=== PATIENT | female | born 2000 | race Asian ===

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

== ENCOUNTER 2020-10-09 15:31 | Outpatient (REF) | payer BC, SELFPAY | END 2020-10-09 15:32 | disposition home or self-care (01) | LOC: LBN 15:31 | PROVIDERS: PCP Nurse Practitioner Family; Visit Provider Nurse Practitioner Family | DX: J02.9 Acute pharyngitis, unspecified (principal) | CPT/HCPCS: 87077; 87070 ==

== ENCOUNTER 2021-07-24 07:13 | Emergency (ER) | payer MEDICAID, SELFPAY ==
[2021-07-24 07:19] VITALS: BP 125/92; PULSE 118; RESP 16; TEMP 36.8; O2SAT 98
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
--- NOTE | 2021-07-24 09:20 | NUR.NOTE ---
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 wants information. says she is on her way to umbrella.Nursing Note:
--- NOTE | 2021-07-24 10:01 | NUR.NOTE ---
spoke to Natasha- told her that pt has refused umbrella and that we are releasing pt as there is no reason to hold her. also spoke to Efrain relaying the same information.Nursing Note:
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
== END 2021-07-24 10:08 | disposition home or self-care (01) ==
PROVIDERS: Emergency Provider Emergency Medicine; PCP Nurse Practitioner Family
DX: T69.8XXA Other specified effects of reduced temperature, initial encounter (principal); S41.111A Laceration without foreign body of right upper arm, initial encounter; W26.0XXA Contact with knife, initial encounter
CPT/HCPCS: 99285; 99283

== ENCOUNTER → 2021-09-15 18:13 | Outpatient (CLI) | payer MEDICAID, SELFPAY ==
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
--- NOTE | 2021-09-15 16:53 | DI.RAD_ITS ---
Exam(s) XR TIB/FIB LT EXAM: XR TIB/FIB LT CLINICAL HISTORY: LEFT LEG PAIN - M79.605, ? BONY INJURY TECHNIQUE: COMPARISON: CR XR ANKLE LT COMPLETE from 09/15/2021 FINDINGS: Two views were obtained. There is no evidence of acute fracture or dislocation. IMPRESSION: RADIATION DOSE DELIVERED: Total DLP
== END ==
PROVIDERS: PCP Nurse Practitioner Family; Visit Provider Physician Assistant Medical
DX: M79.605 Pain in left leg (principal); M25.572 Pain in left ankle and joints of left foot; G89.11 Acute pain due to trauma; X50.1XXA Overexertion from prolonged static or awkward postures, initial encounter; W18.30XA Fall on same level, unspecified, initial encounter; Y99.8 Other external cause status
CPT/HCPCS: 73590; 73610; 73630

== ENCOUNTER 2021-10-21 13:40 | Emergency (ER) | payer MEDICAID, SELFPAY ==
--- NOTE | 2021-10-21 13:45 | RT.EKG_ITS ---
APPROVED REPORT Exam: Resting ECG Reason for Exam: dizzy/syncope Patient Location: E HR:77 bpm ECG Measurements Heart Rate 77 AXIS DE 156 P 37 QRSd 81 QRS 33 QT 366 T 30 QTc 413 Conclusion Sinus rhythm...normal P axis, V-rate 60- 99 sinus rhythm, normal axis, normal intervals, non ischemic, no evidence of WPW, HOCM, Brugada, prolong ed QT, or ARVD
[2021-10-21 13:54] VITALS: BP 109/69; PULSE 80; RESP 16; TEMP 36.7; O2SAT 100
[2021-10-21 14:17] VITALS: RESP 22
[2021-10-21] MEDS: Normal Saline 1,000 ML 1000 ML IV (14:31)
--- NOTE | 2021-10-21 14:36 | ED.GENADUL_ITS ---
Discharge Plan Disposition Patient Disposition: HOME Condition: Improving Discharge Details Chief Complaint: Dizzy/Sync Clinical Impression: Near syncope Primary Care Provider: Pily Bain ED Provider: Aramis Christina Home Meds and New Rx's Prescriptions: No Action polyethylene glycol 3350 [Miralax] 17 GM powder in packet 1 cap PO DAILY PRNQty: 1 albuterol 90 mcg/actuation Aerosol INHALATION PRN PRN sertraline 50 mg tablet 150 mg PO HS Label Comments: TAKE 1 TABLET BY MOUTH ONCE DAILY aripiprazole 10 mg tablet 10 mg PO HS Label Comments: TAKE 1 TABLET BY MOUTH AT BEDTIME Discharge Instructions Instructions: Near Syncope (ED) Medical Decision Making 21-year-old female history of schizophrenia recently started aripiprazole and sertraline, presents with sensation of presyncope, has had blackouts for several years unexplained not worked up by neurology or cardiology, says that she began to pass out today with standing at work and was very busy and stressed with work. No chest pain or shortness of breath no headache no nausea no vomiting no urinary or GI symptomatology. Last menstrual period was abnormal last month and endorses infrequent abnormal periods. Hemodynamically stable alert oriented moving all extremities full strength and sensation, cranial nerves intact, nontoxic. Consider orthostatic hypotension versus vasovagal vers us heat related reaction versus electrolyte abnormality versus unlikely ACS PE CVA or aortic pathology. Screening labs fluids rest. 17: 29 patient resting comfortably feeling much better after fluids and snack. Relative hypoglycemia. Patient endorses that she does not eat much at baseline has been stressed and has not been eating her normal amount. Instructed to carry a snack to work. Feeling comfortable and wishes to go home. Given home care instructions and return precautions. HPI General Date/Time Provider Initiated Documentation: 10/21/21 14:12 . HPI Narrative: 21-year-old female history of schizophrenia presents with lightheadedness presyncopal sensation and history of blacking out multiple times, this happened multiple years ago with self resolution, has never had a cardiac or neurologic work-up per patient. Recently started aripiprazole and sertraline for ps ychiatric conditions. Over the past week or so has felt increasingly lightheaded, not dizzy denies chest pain shortness of breath nausea vomiting urinary symptoms or abnormal bowel movements. Patient believes she may have had a short menstrual period last month otherwise has irregular menstrual periods. Feeling better now that she is resting. At work doing a lot of standing when the symptoms came on Related Data Home Medications Medication Instructions Recorded Confirmed polyethylene glycol 3350 17 gram 1 cap PO DAILY PRN ##1 09/06/16 10/21/21 oral powder packet (Miralax) albuterol 90 mcg/actuation aerosol inhalation PRN PRN 07/24/21 inhaler sertraline 50 mg tablet 150 mg PO HS 07/24/21 10/21/21 aripiprazole 10 mg tablet 10 mg PO HS 10/21/21 10/21/21 Allergies Allergy/AdvReac Type Severity Reaction Status Date / Time bacitracin AdvReac Intermediate Hives Unverified 10/21/21 14:12 pollen extracts AdvReac Mild regular Unverified 10/21/21 14:12 allergies peanut butter Allergy Uncoded 10/21/21 14:12 General Stated Complaint: Dizzy/Sync STEVE: 3 Review of Systems Narrative: Review of Systems Constitutional: Presyncope Eyes: negative ENT: negative Cardiovascular: negative Respiratory: negative Gastrointestinal: negative : negative Musculoskeletal: negative Skin: negative Neurologic: negative Psych: negative PFSH All Active Problems (Updated 10/21/21 @ 17:31 by Aramis Christina MD) Near syncope (Acute) Suicidal ideation (Acute) Sad mood (Acute) Depressed (Acute) Deliberate self-cutting (Acute) Hives (Acute) Medical History (Updated 10/21/21 @ 17:31 by Aramis Christina MD) ADOPTED Allergic rhinitis due to pollen Attention deficit hyperactivity disorder, predominantly inattentive type Constipation Depression with suicidal ideation & anxiety Dane 1 wk hospitalization - ended 05/06/15 Wears glasses Social History Smoking/Tobacco Use Status: Current every day Tobacco Type: e-cigarettes Smoking risk assessment performed?: Yes Alcohol Intake: never Drug use: Never Substance use type: does not use Do you feel safe at home: Yes Do you feel safe in your relationship?: Yes Exam Narrative Exam Narrative: Physical Examination General: alert, awake, cooperative, resting comfortably, no acute distress HEENT: normocephalic, atraumatic; PERRL, EOM intact, conjunctiva normal; no nasal discharge; moist mucous membranes, oral and pharyngeal mucosa normal, tolerating secretions Neck: supple, trachea midline; full ROM Chest: normal to inspection Respiratory: normal respiratory effort, speaking in full sentences, clear to auscultation, no wheezing, rales or rhonchi Cardiac: regular rate, regular rhythm, S1S2 intact, no murmurs rubs or gallops GI: abdomen soft, non-tender, non-distended; no palpable mass or hepatosplenomegaly Skin: no lesions, rashes or trauma appreciated Neuro: AAOx3, normal speech, moving all extremities; however 5 strength upper and lower extremities, cranial nerves II through XII intact Psych: Appropriate mood and affect Course Vital Signs Vital signs: Vital Signs Temperature 36.7 C 10/21/21 13:54 Pulse 80 10/21/21 13:54 Respiratory Rate 16 10/21/21 13:54 Blood Pressure 109/69 10/21/21 13:54 Pulse Oximetry 100 10/21/21 13:54 Temperature 36.7 C 10/21/21 13:54 Temperature Source Skin 10/21/21 13:54 Pulse 80 10/21/21 13:54 Respiratory Rate 22 10/21/21 14:17 Respiratory Effort 10/21/21 14:17 Respiratory Depth Normal 10/21/21 14:17 Respiratory Pattern Normal 10/21/21 14:17 Blood Pressure 109/69 10/21/21 13:54 Pulse Oximetry 100 10/21/21 13:54 Oxygen Delivery Method Room Air 10/21/21 13:54 Oxygen Flow Rate 0 10/21/21 13:54 Pain Level 0 10/21/21 13:54 PAWSS Have you Been Recently Intoxicated or Drunk Within the Last 30 days?: No Have you Ever Experienced Previous Episodes of Alcohol Withdrawal?: No Have you ever Experienced Withdrawal Seizures?: No Have you ever Experienced Delirium Tremens(DT)s?: No Have you ever undergone Alcohol Rehabilitation Treatment (i.e, inpt ot ou tpatient treatment programs)?: No Have you ever Experienced Blackouts?: No Have you ever Combined Alcohol with other Downers within the last 90 days?: No Have you ever Combined Alcohol with any other Substance of Abuse during the last 90 days?: No Positive Blood Alcohol level on Presentation? [PCS.BAL]: No Evidence of Increased Autonomic Activity (i.e. HR>120, tremor, sweating, agitation, nausea)?: No Result: 0
[2021-10-21 14:39] LABS: Abs Immature Grans 0.02 10^3/uL (0.0-0.06); Absolute Basophil Count 0.03 10^3/uL (0.0-0.2); Absolute Eosinophil Count 0.17 10^3/uL (0.0-0.7); Absolute Lymphocyte Count 2.64 10^3/uL (1.2-3.4); Absolute Monocyte Count 0.72 10^3/uL (0.1-0.8); Absolute Neutrophil Count 3.45 10^3/uL (1.2-6.7); Basophils % 0.4; Eosinophils % 2.4; HCT 38.8 % (36.0-46.0); HGB 12.8 g/dL (11.2-15.7); Immature Grans % 0.3; Lymphocytes % 37.6; MCH 31.2 pg (27.0-33.0); MCV 95 fL (80-95); MPV 10.4 fL (8.0-11.0); Monocytes % 10.2; Neutrophils % 49.1; Platelet Count 278 10^3/uL (130-400); RDW 12.2 % (11.7-14.6); WBC 7.03 10^3/uL (4.4-10.8)
[2021-10-21 15:45] LABS: ALT 22 U/L (14-59); Albumin 3.2 g/dL (3.4-5.0); Alkaline Phosphatase 65 U/L (46-116); Anion Gap 5.5 mmol/L (3-11); BUN 20 mg/dL (7-18); Bilirubin, Total 0.4 mg/dL (0.2-1.0); CO2 25.5 mmol/L (21.0-32.0); CREATININE 0.7 mg/dL (0.55-1.02); Calcium 8.5 mg/dL (8.5-10.1); Chloride 106 mmol/L (98-107); Glucose 72 mg/dL (74-106); Potassium 5.6 mmol/L (3.5-5.1); Sodium 137 mmol/L (136-145); Total Protein 7.5 g/dL (6.4-8.2)
[2021-10-21 16:08] LABS: AST 49 U/L (15-37)
[2021-10-21 17:47] VITALS: BP 113/70; PULSE 86; RESP 16; O2SAT 100
== END 2021-10-21 18:00 | disposition home or self-care (01) ==
PROVIDERS: Emergency Provider Emergency Medicine; PCP Nurse Practitioner Family
DX: R55 Syncope and collapse (principal); E16.2 Hypoglycemia, unspecified; F17.290 Nicotine dependence, other tobacco product, uncomplicated; Z32.02 Encounter for pregnancy test, result negative
CPT/HCPCS: 36415; 80053; 81025; 93005; 96360; 99284; 85025; 93010

== ENCOUNTER 2021-12-28 06:23 | Emergency (ER) | payer MEDICAID, SELFPAY ==
[2021-12-28 06:29] VITALS: BP 103/66; PULSE 73; RESP 18; TEMP 36.7; O2SAT 99
--- NOTE | 2021-12-28 06:43 | ED.GENADUL_ITS ---
Discharge Plan Disposition Patient Disposition: HOME Condition: Stable Discharge Details Clinical Impression: Abdominal pain, RLQ Primary Care Provider: Pily Bain ED Provider: Azam Palencia Home Meds and New Rx's Prescriptions: New naproxen [Naprosyn] 500 mg tablet 500 mg PO BID Qty: 20 0RF dicyclomine 20 mg tablet 20 mg PO QID Qty: 10 0RF Continued polyethylene glycol 3350 [Miralax] 17 GM powder in packet 1 cap PO DAILY PRNQty: 1 albuterol 90 mcg/actuation Aerosol INHALATION PRN PRN sertraline 50 mg tablet 150 mg PO HS Label Comments: TAKE 1 TABLET BY MOUTH ONCE DAILY aripiprazole 10 mg tablet 10 mg PO HS Label Comments: TAKE 1 TABLET BY MOUTH AT BEDTIME Discharge Instructions Instructions: Abdominal Pain (ED) Additional Instructions: CT imaging reveals some mesenteric enlarged lymph nodes as well as a calcification in the right pelvis, this is likely not a stone. It would appear as though you are feeling improved with your IV medications. I am providing a prescription for both Bentyl and Naprosyn, please take as directed. Clear liquid diet, advance as tolerated. Please watch for new or worsening symptoms and return to the ER for any concerns. I strongly recommend that you contact your primary care provider later today to discuss your ER visit and ongoing sy mptoms. If symptoms are to persist then referral to general surgery, urology, [employer], they indicated for further evaluation of your presentation. Medical Decision Making Patient presenting with right lower quadrant abdominal pain worsening over 2 days. No associated symptoms. She is quite tender in the right lower quadrant. Urine test is negative. IV established and laboratory studies obtained. Urinalysis sent for. CT scan of the abdomen pelvis ordered. Fluids and ketorolac given. Patient's urinalysis negative. CBC and CMP are normal. CT scan is pending Lab Data Lab results reviewed: Yes I reviewed the patient's lab results. HPI General Mode of arrival: ambulatory . Date/Time Provider Initiated Documentation: 12/28/21 06:41 . Limitations to Documentation: no limitations . Information obtained by: patient . HPI Narrative: Patient presents to ED with right lower quadrant abdominal pain. She has had some discomfort for a couple of days but this morning much worse and now sharp in nature at times. She has not had this previously. She denies any fever, nausea, vomiting, anorexia, diarrhea, pelvic pain, urinary symptoms. She has low back pain which is normal for her and unchanged. She has had no previous surgeries. Pain worse with movement as well as with driving over here when hitting bumps. Related Data Home Medications Medication Instructions Recorded Confirmed polyethylene glycol 3350 17 gram 1 cap PO DAILY PRN ##1 09/06/16 10/21/21 oral powder packet (Miralax) albuterol 90 mcg/actuation aerosol inhalation PRN PRN 07/24/21 inhaler sertraline 50 mg tablet 150 mg PO HS 07/24/21 10/21/21 aripiprazole 10 mg tablet 10 mg PO HS 10/21/21 10/21/21 dicyclomine 20 mg tablet 20 mg PO QID #10 tabs 12/28/21 naproxen 500 mg tablet (Naprosyn) 500 mg PO BID #20 tabs 12/28/21 Previous Rx's Medication Instructions Recorded dicyclomine 20 mg tablet 20 mg PO QID #10 tabs 12/28/21 naproxen 500 mg tablet (Naprosyn) 500 mg PO BID #20 tabs 12/28/21 Allergies Allergy/AdvReac Type Severity Reaction Status Date / Time bacitracin AdvReac Intermediate Hives Unverified 12/28/21 06:32 pollen extracts AdvReac Mild regular Unverified 12/28/21 06:32 allergies peanut butter Allergy Uncoded 12/28/21 06:32 General Stated Complaint: Abd Prob STEVE: 3 Review of Systems Narrative: 01/12 Review of Systems completed and is negative except as stated above in HPI (Systems reviewed: Const, Eyes, ENT, Resp, CV, GI, , MSK, Skin, Neuro) PFSH All Active Problems (Updated 12/28/21 @ 07:43 by Jourdan Lutz MD) Abdominal pain, RLQ (Acute) Allergic rhinitis due to pollen (Acute) Suicidal ideation (Acute) Sad mood (Acute) Depressed (Acute) Deliberate self-cutting (Acute) Hives (Acute) Medical History (Updated 12/28/21 @ 07:43 by Jourdan Lutz MD) ADOPTED Attention deficit hyperactivity disorder, predominantly inattentive type Constipation Depression with suicidal ideation & anxiety Anthonylenatalia 1 wk hospitalization - ended 05/06/15 Wears glasses Social History Smoking/Tobacco Use Status: Current every day Tobacco Type: e-cigarettes Smoking risk assessment performed?: Yes Alcohol Intake: never Drug use: Never Substance use type: does not use Do you feel safe at home: Yes Do you feel safe in your relationship?: Yes Exam Narrative Exam Narrative: Const: WDWN female in NAD. HEENT: NC/AT. Normal facial exam. Eyes: Normal conjunctiva and sclera. Neck: Supple. Trachea midline. Lungs: Normal respiratory effort. Lungs are clear. Cor: RRR without murmur/gallop. Good radial pulses. GI: Soft and ND. Tender in the right lower quadrant with guarding. No rebound. No Rovsing Back: No CVAT Neuro: A+O x 3. Normal speech, mentation, gait. Cranial nerves II - XII grossly intact. No gross motor or sensory deficit. Ext: No C/C/E. Skin: Warm and dry without rash. Course Vital Signs Vital signs: Vital Signs Temperature 98.1 F 12/28/21 06:29 Pulse 73 12/28/21 06:29 Respiratory Rate 18 12/28/21 06:29 Blood Pressure 103/66 12/28/21 06:29 Pulse Oximetry 99 12/28/21 06:29 Temperature 98.1 F 12/28/21 06:29 Temperature Source Oral 12/28/21 06:29 Pulse 73 12/28/21 06:29 Respiratory Rate 18 12/28/21 06:29 Respiratory Effort Non-Labored 12/28/21 06:33 Blood Pressure 103/66 12/28/21 06:29 Pulse Oximetry 99 12/28/21 06:29 Pain Level 8 12/28/21 06:29 Lab/Test Results Lab/Test Results: POC- Test(urine) Negative Sign Out Sign Out Data: Sign Out Comment: pending CT Last updated by Jourdan Lutz MD at 12/28/21 08:21
--- NOTE | 2021-12-28 06:45 | DI.CT_ITS ---
Exam(s) CT ABDOMEN PELVIS W EXAM: CT ABDOMEN PELVIS W CLINICAL HISTORY: RLQ pain TECHNIQUE: Imaging Protocol: Axial computed tomography images with coronal and sagittal reformatted images were created and reviewed CONTRAST MATERIAL: Intravenous: Omnipaque 350 Contrast volume:100 mL Oral: No COMPARISON: No exams were available for comparison FINDINGS: ABDOMEN: Lung Bases: Normal where visualized. Liver: Normal density. No measurable mass. Portal, Superior Mesenteric, and Splenic Veins: Unremarkable. Gallbladder and Biliary Tract: No radiodense calculus or dilation. Pancreas: Normal density, no abnormal calcifications or inflammatory process. Spleen: Normal. Adrenals: No masses seen. Kidneys: Normal size, contour and axis. No radiodense stones or obstructive uropathy. No masses seen. There is a 3 mm calcification in the right pelvis in the expected course of the distal ureter. No s ignificant dilatation or asymmetric dilatation of the collecting systems are is noted. The kidneys s how normal and symmetric enhancement. This may represent a phlebolith. A nonobstructing distal uret eral stone may also be considered. Abdominal Aorta: Abdominal portion non-dilated. Bowel: No obstruction or bowel wall thickening. Appendix is unremarkable. Peritoneal Cavity: No ascites, collection or mesenteric inflammatory response. No free air. Lymph Nodes: Mildly enlarged lymph nodes are seen in the mesentery and right lower quadrant. Bones: Within normal limits for the patient's age. Soft Tissues: Unremarkable. PELVIS: Bladder: Symmetric distention, no gross wall thickening. Reproductive Organs: Unremarkable as visualized. Lymph Nodes: Within normal limits. Bones: Within normal limits for the patient's age. IMPRESSION: 1. 3 mm calcification in the right pelvis. Phlebolith versus nonobstructing stone distal ureteral st one. Please see the above discussion for complete details. 2. Mildly enlarged mesenteric lymph nodes. This may represent mesenteric adenitis or a mild enteriti s. 3. Results of this exam have been verbally communicated with provider. RADIATION DOSE DELIVERED: 810.45mGy.cm Total DLP DATA REPOSITORY: All CT scans at this facility are submitted to the National Radiology Data Registry (NRDR) Dose Index Registry (DIR) with the [employer] (A[employer]). RADIATION OPTIMIZATION: All CT scans at this facility use at least one of these dose optimization te chniques: automated exposure control; mA and/or kV adjustment per patient size (includes targeted exa ms where dose is matched to clinical indication); or iterative reconstruction.
[2021-12-28 06:53] LABS: Bilirubin Negative (Negative); Blood Negative (Negative); Clarity Clear (Clear); Glucose Negative (Negative); Ketones Negative (Negative); Leukocyte Esterase Negative (Negative); Nitrite Negative (Negative); Specific Gravity >= 1.030 (1.005-1.025); Urobilinogen 0.2 EU/dL (Up TO 0.2); pH 6.5 (5-8)
[2021-12-28 07:22] LABS: Abs Immature Grans 0.01 10^3/uL (0.0-0.06); Absolute Basophil Count 0.03 10^3/uL (0.0-0.2); Absolute Eosinophil Count 0.13 10^3/uL (0.0-0.7); Absolute Lymphocyte Count 2.54 10^3/uL (1.2-3.4); Absolute Monocyte Count 0.61 10^3/uL (0.1-0.8); Absolute Neutrophil Count 4.17 10^3/uL (1.2-6.7); Basophils % 0.4; Eosinophils % 1.7; Immature Grans % 0.1; Lymphocytes % 33.9; MCH 29.9 pg (27.0-33.0); MCHC 32.4 % (32.0-36.0); MCV 92 fL (80-95); MPV 10.2 fL (8.0-11.0); Monocytes % 8.1; Neutrophils % 55.8; Platelet Count 275 10^3/uL (130-400); RBC 4.01 10^6/uL (3.93-5.22); RDW 12.3 % (11.7-14.6); RDW-SD 42.2 fL; WBC 7.49 10^3/uL (4.4-10.8)
[2021-12-28] MEDS: Normal Saline 1,000 ML 1000 ML IV (07:34)
[2021-12-28] MEDS: Ketorolac 30 MG/ML VIAL IVP (07:34)
[2021-12-28] MEDS: Normal Saline Flush 10 ML SYR IVP (07:35)
[2021-12-28 07:41] LABS: ALT 17 U/L (14-59); AST 16 U/L (15-37); Albumin 3.7 g/dL (3.4-5.0); Alkaline Phosphatase 71 U/L (46-116); Anion Gap 8.8 mmol/L (3-11); BUN 18 mg/dL (7-18); Bilirubin, Total 0.4 mg/dL (0.2-1.0); CO2 26.2 mmol/L (21.0-32.0); CREATININE 0.5 mg/dL (0.55-1.02); Calcium 8.9 mg/dL (8.5-10.1); Chloride 103 mmol/L (98-107); Estimated GFR 136.76 (mL/min/1.73m2); Glucose 84 mg/dL (74-106); Sodium 138 mmol/L (136-145); Total Protein 7.5 g/dL (6.4-8.2)
[2021-12-28] MEDS: Omnipaque 350 MG/ML 100 ML BTL IJ (07:53)
--- NOTE | 2021-12-28 09:05 | W.EDPROG ---
Date of service: 12/28/21 Time of Service: 09:05 Medical Decision Making This is a 21-year-old female who I assumed care of from Dr. Lutz, please see his initial HPI and examination. At time of signout awaiting CT imaging of the abdomen and pelvis with IV contrast. Patient reports that her pain is moderately improved with the IV Toradol. She tells me the pain has been going on for the past couple of days, no associated symptoms, across her lower abdomen worse on the right side. CT imaging reveals 1. 3 mm calcification in the right pelvis. Phlebolith versus nonobstructing stone distal ureteral stone. Please see the above discussion for complete details. 2. Mildly enlarged mesenteric lymph nodes. This may represent mesenteric adenitis or a mild enteritis. 3. Results of this exam have been verbally communicated with provider. Patient without back pain, flank pain, hematuria, urinary symptoms, etc. Examination is not consistent with a distal ureteral stone. Appendix is unremarkable. There are mildly enlarged mesenteric lymph nodes. Could represent mesenteric adenitis or a mild enteritis. Discussed CT findings with patient. She feels improvement and would like to be discharged home. I will provide a prescription for Naprosyn and Bentyl. We discussed the importance of outpatient follow-up through her PCP potential referral for further evaluation if her symptoms are to persist. Standard discharge and return precautions were provided. Patient understands, is agreeable to this plan, and has no additional questions or concerns upon discharge. This documentation was generated using [employer] dictation system, please disregard any oddities of phrase or misspellings. Medical Records Medical records reviewed: Yes I reviewed the patient's medical records. Imaging Data Radiologic Study: Attestation: I personally reviewed and interpreted this imaging study as follows: Imaging: CT Scan Radiologist's impression: Exam(s) CT ABDOMEN PELVIS W EXAM: CT ABDOMEN PELVIS W CLINICAL HISTORY: RLQ pain TECHNIQUE: Imaging Protocol: Axial computed tomography images with coronal and sagittal reformatted images were created and reviewed CONTRAST MATERIAL: Intravenous: Omnipaque 350 Contrast volume:100 mL Oral: No COMPARISON: No exams were available for comparison FINDINGS: ABDOMEN: Lung Bases: Normal where visualized. Liver: Normal density. No measurable mass. Portal, Superior Mesenteric, and Splenic Veins: Unremarkable. Gallbladder and Biliary Tract: No radiodense calculus or dilation. Pancreas: Normal density, no abnormal calcifications or inflammatory process. Spleen: Normal. Adrenals: No masses seen. Kidneys: Normal size, contour and axis. No radiodense stones or obstructive uropathy. No masses seen. There is a 3 mm calcification in the right pelvis in the expected course of the distal ureter. No significant dilatation or asymmetric dilatation of the collecting systems are is noted. The kidneys show normal and symmetric enhancement. This may represent a phlebolith. A nonobstructing distal ureteral stone may also be considered. Abdominal Aorta: Abdominal portion non-dilated. Bowel: No obstruction or bowel wall thickening. Appendix is unremarkable. Peritoneal Cavity: No ascites, collection or mesenteric inflammatory response. No free air. Lymph Nodes: Mildly enlarged lymph nodes are seen in the mesentery and right lower quadrant. Bones: Within normal limits for the patient's age. Soft Tissues: Unremarkable. PELVIS: Bladder: Symmetric distention, no gross wall thickening. Reproductive Organs: Unremarkable as visualized. Lymph Nodes: Within normal limits. Bones: Within normal limits for the patient's age. IMPRESSION: 1. 3 mm calcification in the right pelvis. Phlebolith versus nonobstructing stone distal ureteral stone. Please see the above discussion for complete details. 2. Mildly enlarged mesenteric lymph nodes. This may represent mesenteric adenitis or a mild enteritis. 3. Results of this exam have been verbally communicated with provider. Lab Data Lab results reviewed: Yes I reviewed the patient's lab results. Labs: Laboratory Tests Range/Units 12/28/21 12/28/21 12/28/21 06:40 07:06 07:06 WBC (4.4-10.8) 10^3/uL 7.49 RBC (3.93-5.22) 10^6/uL 4.01 Hgb (11.2-15.7) g/dL 12.0 Hct (36.0-46.0) % 37.0 MCV (80-95) fL 92 MCH (27.0-33.0) pg 29.9 MCHC (32.0-36.0) % 32.4 RDW (11.7-14.6) % 12.3 Plt Count (130-400) 10^3/uL 275 MPV (8.0-11.0) fL 10.2 Immature Gran % 0.1 Neutrophils % 55.8 Lymphocytes % 33.9 Monocytes % 8.1 Eosinophils % 1.7 Basophils % 0.4 Nucleated RBC % (0.0-0.3) % 0.0 Absolute Neutrophils (1.2-6.7) 10^3/uL 4.17 Absolute Lymphocytes (1.2-3.4) 10^3/uL 2.54 Absolute Monocytes (0.1-0.8) 10^3/uL 0.61 Absolute Eosinophils (0.0-0.7) 10^3/uL 0.13 Absolute Basophils (0.0-0.2) 10^3/uL 0.03 Sodium (136-145) mmol/L 138 Potassium (3.5-5.1) mmol/L 4.0 Chloride (98-107) mmol/L 103 Carbon Dioxide (21.0-32.0) mmol/L 26.2 Anion Gap (3-11) mmol/L 8.8 BUN (7-18) mg/dL 18 Creatinine (0.55-1.02) mg/dL 0.5 L Est GFR (CKD-EPI 2020) (mL/min/1.73m2) 136.76 Glucose (74-106) mg/dL 84 Calcium (8.5-10.1) mg/dL 8.9 Total Bilirubin (0.2-1.0) mg/dL 0.4 AST (15-37) U/L 16 ALT (14-59) U/L 17 Alkaline Phosphatase (46-116) U/L 71 Total Protein (6.4-8.2) g/dL 7.5 Albumin (3.4-5.0) g/dL 3.7 Urine Color (Yellow) Yellow Urine Clarity (Clear) Clear Urine pH (5-8) 6.5 Ur Specific [place] (1.005-1.025) >= 1.030 H Urine Protein (Negative) mg/dL Negative Urine Ketones (Negative) mg/dL Negative Urine Blood (Negative) Negative Urine Nitrite (Negative) Negative Urine Bilirubin (Negative) Negative Urine Urobilinogen (Up TO 0.2) EU/dL 0.2 Ur Leukocyte Esterase (Negative) Negative Urine Glucose (Negative) mg/dL Negative Exam Const General: cooperative, healthy appearing, comfortable and no acute distress Orientation: alert and awake [facility] Head: normal to inspection, normocephalic and atraumatic Eyes Conjunctivae: conjunctivae normal Neck Neck: normal visual inspection, trachea midline and supple Resp Effort & Inspection: normal respiratory effort and able to speak in complete sentences GI Inspection: normal to inspection Palpation: soft, not firm, no guarding, no pulsatile masses and tender (Diffuse lower, slightly worse on the right) not at McBurney's point, David's sign negative and with no rebound tenderness Auscultation: normal bowel sounds Back/Spine/Pelvis Back: no CVA tenderness and No back tenderness Skin General skin exam: no rashes or lesions noted Neuro General: patient alert, patient awake, moves all extremities and no focal motor deficits Cognition: normal cognition Speech: speech normal Gait: normal gait Sensory Exam: no sensory deficits noted Psych Appearance: grossly normal Mental Status: mental status grossly normal Sign Out Sign Out Data: Sign Out Comment: pending CT Last updated by Jourdan Lutz MD at 12/28/21 08:21 Discharge Plan Disposition Patient Disposition: HOME Condition: Stable Discharge Details Clinical Impression: Abdominal pain, RLQ Primary Care Provider: Pily Bain ED Provider: Azam Palencia Home Meds and New Rx's Prescriptions: New naproxen [Naprosyn] 500 mg tablet 500 mg PO BID Qty: 20 0RF dicyclomine 20 mg tablet 20 mg PO QID Qty: 10 0RF Continued polyethylene glycol 3350 [Miralax] 17 GM powder in packet 1 cap PO DAILY PRNQty: 1 albuterol 90 mcg/actuation Aerosol INHALATION PRN PRN sertraline 50 mg tablet 150 mg PO HS Label Comments: TAKE 1 TABLET BY MOUTH ONCE DAILY aripiprazole 10 mg tablet 10 mg PO HS Label Comments: TAKE 1 TABLET BY MOUTH AT BEDTIME Discharge Instructions Instructions: Abdominal Pain (ED) Additional Instructions: CT imaging reveals some mesenteric enlarged lymph nodes as well as a calcification in the right pelvis, this is likely not a stone. It would appear as though you are feeling improved with your IV medications. I am providing a prescription for both Bentyl and Naprosyn, please take as directed. Clear liquid diet, advance as tolerated. Please watch for new or worsening symptoms and return to the ER for any concerns. I strongly recommend that you contact your primary care provider later today to discuss your ER visit and ongoing symptoms. 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
--- NOTE | 2022-01-03 11:08 | NUR.NOTE ---
Nursing Note: Patient called asking for a return to work note. Kenny Palencia will do a work note and it will be scanned into the patient record.,
== END 2021-12-28 09:24 | disposition home or self-care (01) ==
PROVIDERS: Emergency Medicine; Emergency Provider Physician Assistant; PCP Nurse Practitioner Family
DX: R10.31 Right lower quadrant pain (principal); F17.290 Nicotine dependence, other tobacco product, uncomplicated
CPT/HCPCS: 80053; 81025; 96361; 96374; 99285; 74177; 81003; 85025; 99284; J1885; J3490

== ENCOUNTER 2022-01-21 12:57 | Emergency (ER) | payer MEDICAID, SELFPAY ==
[2022-01-21 12:59] VITALS: BP 109/73; PULSE 83; RESP 16; TEMP 36.8; O2SAT 100
--- NOTE | 2022-01-21 13:19 | ED.GENADUL_ITS ---
Discharge Plan Disposition Patient Disposition: HOME Condition: Stable Discharge Details Clinical Impression: Vaginal bleeding Primary Care Provider: Pily Bain ED Provider: Azam Palencia Home Meds and New Rx's Prescriptions: Continued polyethylene glycol 3350 [Miralax] 17 GM powder in packet 1 cap PO DAILY PRNQty: 1 albuterol 90 mcg/actuation Aerosol INHALATION PRN PRN sertraline 50 mg tablet 150 mg PO HS Label Comments: TAKE 1 TABLET BY MOUTH ONCE DAILY aripiprazole 10 mg tablet 10 mg PO HS Label Comments: TAKE 1 TABLET BY MOUTH AT BEDTIME naproxen [Naprosyn] 500 mg tablet 500 mg PO BID Qty: 20 0RF dicyclomine 20 mg tablet 20 mg PO QID Qty: 10 0RF risperidone [Risperdal] 0.5 mg Tablet 1 mg PO 1XD Discharge Instructions Instructions: Abnormal (Dysfunctional) Uterine Bleeding (ED) Additional Instructions: Laboratory values are unremarkable for any obvious emergent process. Please watch for new or worsening symptoms and return to the ER for any concerns. Lastly, please contact your woman's wellness team tomorrow to discuss your ER visit, ongoing symptoms, and need for outpatient reevaluation. Medical Decision Making This is a 21-year-old female, denies significant past medical history, recently began her hormone contraception again over the past 2-3 weeks, presenting to the ER today for vaginal bleeding and a small amount of clots that began yesterday, reports going through several pads. Patient reports that her normal menstrual cycle ended 6 days ago. She reports a small amount of cramping but none at this time. Denies easy bruising or bleeding, weakness, abdominal pain, fever, nausea, vomiting, other vaginal discharge or concern for STD. Clinically she appears well, nontoxic, hemodynamically stable. Pelvic examination deferred as will likely not make any change in her overall disposition. Plan is to obtain IV access, assess CBC, CMP, urinalysis, and provide IV fluid and Toradol. Laboratory values here in the ER are unremarkable for any obvious emergent process. No evidence of anemia. Patient remains asymptomatic, has not required to change any pads while here, remains hemodynamically stable. Recommend contacting her woman's women's tomorrow to discuss her symptoms. Standard discharge and return precautions were provided. Patient understands, is agreeable to this plan, and has no additional questions or concerns upon discharge. This documentation was generated using [employer] system, please disregard any oddities of phrase or misspellings. Medical Records Medical records reviewed: Yes I reviewed the patient's medical records. Lab Data Lab results reviewed: Yes I reviewed the patient's lab results. Labs: Laboratory Tests Range/Units 01/21/22 01/21/22 01/21/22 13:30 13:30 14:05 WBC (4.4-10.8) 10^3/uL 5.23 RBC (3.93-5.22) 10^6/uL 4.49 Hgb (11.2-15.7) g/dL 13.3 Hct (36.0-46.0) % 41.0 MCV (80-95) fL 91 MCH (27.0-33.0) pg 29.6 MCHC (32.0-36.0) % 32.4 RDW (11.7-14.6) % 12.6 Plt Count (130-400) 10^3/uL 264 MPV (8.0-11.0) fL 11.0 Immature Gran % 0.2 Neutrophils % 49.1 Lymphocytes % 41.5 Monocytes % 7.1 Eosinophils % 1.7 Basophils % 0.4 Nucleated RBC % (0.0-0.3) % 0.0 Absolute Neutrophils (1.2-6.7) 10^3/uL 2.57 Absolute Lymphocytes (1.2-3.4) 10^3/uL 2.17 Absolute Monocytes (0.1-0.8) 10^3/uL 0.37 Absolute Eosinophils (0.0-0.7) 10^3/uL 0.09 Absolute Basophils (0.0-0.2) 10^3/uL 0.02 Sodium (136-145) mmol/L 141 Potassium (3.5-5.1) mmol/L 3.7 Chloride (98-107) mmol/L 106 Carbon Dioxide (21.0-32.0) mmol/L 27.6 Anion Gap (3-11) mmol/L 7.4 BUN (7-18) mg/dL 12 Creatinine (0.55-1.02) mg/dL 0.6 Est GFR (CKD-EPI 2020) (mL/min/1.73m2) 130.88 Glucose (74-106) mg/dL 95 Calcium (8.5-10.1) mg/dL 8.9 Total Bilirubin (0.2-1.0) mg/dL 0.3 AST (15-37) U/L 16 ALT (14-59) U/L 20 Alkaline Phosphatase (46-116) U/L 60 Total Protein (6.4-8.2) g/dL 7.9 Albumin (3.4-5.0) g/dL 3.8 Lipase (73-393) U/L 75 Urine Color (Yellow) Yellow Urine Clarity (Clear) Clear Urine pH (5-8) 7.0 Ur Specific [place] (1.005-1.025) >= 1.030 H Urine Protein (Negative) mg/dL Negative Urine Ketones (Negative) mg/dL Negative Urine Blood (Negative) Large H Urine Nitrite (Negative) Negative Urine Bilirubin (Negative) Negative Urine Urobilinogen (Up TO 0.2) EU/dL 0.2 Ur Leukocyte Esterase (Negative) Negative Urine RBC (0-2) HPF 20-50 H Urine WBC (0-5) HPF 0-2 Ur Epithelial Cells (Negative) HPF Rare Urine Crystals (Negative) HPF Negative Urine Bacteria (Negative) HPF Rare Urine Casts (Negative) LPF Negative Urine Mucus (Negative) Trace Ur Culture Indicated? No Urine Glucose (Negative) mg/dL Negative HPI General Mode of arrival: ambulatory . Date/Time Provider Initiated Documentation: 01/21/22 12:58 . Limitations to Documentation: no limitations . Information obtained by: patient . HPI Narrative: This is a 21-year-old female presenting to the ER for evaluation of vaginal bleeding. Patient states that after she gave approximately 9 months ago she was started on control, after a few months she stopped taking it on her own, and began taking it again approximately 2-3 weeks ago. Patient states that her last menstrual cycle was normal and ended appropriately approximately 6 days ago. She began having vaginal bleeding that began yesterday, dark red blood, a few clots noted. She states that she has had 2 use several pads, for 5 over the past 24 hours. Patient denies recent illness or general trauma, vaginal trauma, easy bruising or bleeding, nausea, vomiting, vaginal discharge. She reports that she had an occasional which she describes as period cramps over the past 24 hours but is currently pain-free. She tells me that she is sexually active with 1 partner, they do not use additional contraceptive protection, no risk of STD. Related Data Home Medications Medication Instructions Recorded Confirmed polyethylene glycol 3350 17 gram 1 cap PO DAILY PRN ##1 09/06/16 01/21/22 oral powder packet (Miralax) albuterol 90 mcg/actuation aerosol inhalation PRN PRN 07/24/21 inhaler sertraline 50 mg tablet 150 mg PO HS 07/24/21 01/21/22 aripiprazole 10 mg tablet 10 mg PO HS 10/21/21 01/21/22 dicyclomine 20 mg tablet 20 mg PO QID #10 tabs 12/28/21 01/21/22 naproxen 500 mg tablet (Naprosyn) 500 mg PO BID #20 tabs 12/28/21 01/21/22 risperidone 0.5 mg tablet 1 mg PO 1XD 01/21/22 01/21/22 (Risperdal) Previous Rx's Medication Instructions Recorded dicyclomine 20 mg tablet 20 mg PO QID #10 tabs 12/28/21 naproxen 500 mg tablet (Naprosyn) 500 mg PO BID #20 tabs 12/28/21 Allergies Allergy/AdvReac Type Severity Reaction Status Date / Time bacitracin AdvReac Intermediate Hives Unverified 01/21/22 13:53 pollen extracts AdvReac Mild regular Unverified 01/21/22 13:53 allergies peanut butter Allergy Uncoded 01/21/22 13:53 General 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 Review of Systems Constitutional Constitutional: Denies fever(s) and Denies weakness Cardiovascular Cardiovascular: Denies chest pain and Denies dyspnea Respiratory Respiratory: Denies dyspnea Gastrointestinal Gastrointestinal: Reports abdominal pain (Lower cramping, resolved), Denies melena, Denies hematochezia, Denies nausea and Denies vomiting Genitourinary Genitourinary: Reports abnormal vaginal bleeding, Denies dysuria, Denies pelvic pain and Denies vaginal discharge Musculoskeletal Musculoskeletal: Denies myalgias Integumentary/Breasts Skin/Breast: Denies rash Neurologic Neurologic: Denies weakness Hematologic/Lymphatic Hematologic/Lymphatic: Denies easy bleeding and Denies easy bruising PFSH All Active Problems (Updated 01/21/22 @ 14:28 by KIAN Vogel) Abdominal pain, RLQ (Acute) Vaginal bleeding (Acute) Allergic rhinitis due to pollen (Acute) Suicidal ideation (Acute) Sad mood (Acute) Depressed (Acute) Deliberate self-cutting (Acute) Hives (Acute) Medical History (Updated 01/21/22 @ 14:28 by KIAN Vogel) ADOPTED Attention deficit hyperactivity disorder, predominantly inattentive type Constipation Depression with suicidal ideation & anxiety [facility] 1 wk hospitalization - ended 05/06/15 Wears glasses Social History Smoking/Tobacco Use Status: Current every day Tobacco Type: e-cigarettes Smoking risk assessment performed?: Yes Alcohol Intake: never Drug use: Never Substance use type: does not use Do you feel safe at home: Yes Do you feel safe in your relationship?: Yes Exam Const General: cooperative, healthy appearing, comfortable and no acute distress Orientation: alert, awake and oriented x3 HENMT Head: normal to inspection, normocephalic and atraumatic Face and sinus: normal facial exam Mouth: moist mucous membranes Eyes Conjunctivae: conjunctivae normal Neck Neck: normal visual inspection, full ROM, trachea midline and supple Resp Effort & Inspection: normal respiratory effort and able to speak in complete sentences Auscultation: clear to auscultation bilaterally Cardio Rate: regular rate Rhythm: regular rhythm GI Inspection: normal to inspection Palpation: soft, not firm, no guarding, no pulsatile masses and nontender Auscultation: normal bowel sounds General: deferred Back/Spine/Pelvis Back: no CVA tenderness and No back tenderness Skin General skin exam: no rashes or lesions noted Neuro General: patient alert, patient awake, moves all extremities and no focal motor deficits Cognition: normal cognition Speech: speech normal Gait: normal gait Sensory Exam: no sensory deficits noted Extrem General: normal to inspection, full ROM and capillary refill normal Psych Appearance: grossly normal Mental Status: mental status grossly normal Course Vital Signs Vital signs: Vital Signs Temperature 36.8 C 01/21/22 12:59 Pulse 83 01/21/22 12:59 Respiratory Rate 16 01/21/22 12:59 Blood Pressure 109/73 01/21/22 12:59 Pulse Oximetry 100 01/21/22 12:59 Temperature 36.8 C 01/21/22 12:59 Temperature Source Oral 01/21/22 12:59 Pulse 83 1023/22 12:59 Respiratory Rate 16 01/21/22 12:59 Blood Pressure 109/73 01/21/22 12:59 Blood Pressure Position Sitting 01/21/22 12:59 Pulse Oximetry 100 01/21/22 12:59 Oxygen Delivery Method Room Air 01/21/22 12:59 Oxygen Flow Rate 0 01/21/22 12:59 Pain Level 0 01/21/22 12:59
[2022-01-21] MEDS: Normal Saline 1,000 ML 1000 ML IV (13:32)
[2022-01-21 13:47] LABS: Abs Immature Grans 0.01 10^3/uL (0.0-0.06); Absolute Basophil Count 0.02 10^3/uL (0.0-0.2); Absolute Eosinophil Count 0.09 10^3/uL (0.0-0.7); Absolute Lymphocyte Count 2.17 10^3/uL (1.2-3.4); Absolute Monocyte Count 0.37 10^3/uL (0.1-0.8); Absolute Neutrophil Count 2.57 10^3/uL (1.2-6.7); Basophils % 0.4; Eosinophils % 1.7; HGB 13.3 g/dL (11.2-15.7); Immature Grans % 0.2; Lymphocytes % 41.5; MCH 29.6 pg (27.0-33.0); MCHC 32.4 % (32.0-36.0); MCV 91 fL (80-95); Monocytes % 7.1; Neutrophils % 49.1; Platelet Count 264 10^3/uL (130-400); RBC 4.49 10^6/uL (3.93-5.22); RDW 12.6 % (11.7-14.6); RDW-SD 41.9 fL; WBC 5.23 10^3/uL (4.4-10.8)
[2022-01-21 14:09] LABS: ALT 20 U/L (14-59); AST 16 U/L (15-37); Albumin 3.8 g/dL (3.4-5.0); Alkaline Phosphatase 60 U/L (46-116); Anion Gap 7.4 mmol/L (3-11); BUN 12 mg/dL (7-18); Bilirubin, Total 0.3 mg/dL (0.2-1.0); CO2 27.6 mmol/L (21.0-32.0); CREATININE 0.6 mg/dL (0.55-1.02); Calcium 8.9 mg/dL (8.5-10.1); Chloride 106 mmol/L (98-107); Estimated GFR 130.88 (mL/min/1.73m2); Glucose 95 mg/dL (74-106); Lipase 75 U/L (73-393); Potassium 3.7 mmol/L (3.5-5.1); Sodium 141 mmol/L (136-145); Total Protein 7.9 g/dL (6.4-8.2)
[2022-01-21 14:20] LABS: Bilirubin Negative (Negative); Blood Large (Negative); Clarity Clear (Clear); Glucose Negative (Negative); Ketones Negative (Negative); Leukocyte Esterase Negative (Negative); Nitrite Negative (Negative); Specific Gravity >= 1.030 (1.005-1.025); Urobilinogen 0.2 EU/dL (Up TO 0.2)
[2022-01-21 14:22] LABS: Bacteria Rare HPF (Negative); C & S Indicated? No; Casts Negative LPF (Negative); Crystals Negative HPF (Negative); Epithelial Cells Rare HPF (Negative); Mucus Trace (Negative); RBC 20-50 HPF (0-2); WBC 0-2 HPF (0-5)
[2022-01-21] MEDS: Ketorolac 30 MG/ML VIAL IVP (14:43)
[2022-01-21 14:47] VITALS: BP 99/73; PULSE 79; RESP 15; O2SAT 100
== END 2022-01-21 14:59 | disposition home or self-care (01) ==
PROVIDERS: Emergency Provider Physician Assistant; PCP Nurse Practitioner Family
DX: N93.9 Abnormal uterine and vaginal bleeding, unspecified (principal)
CPT/HCPCS: 36415; 80053; 81025; 83690; 96361; 96374; 99284; 81003; 81015; 85025; J1885

== ENCOUNTER 2022-02-16 07:51 | Emergency (ER) | payer MEDICAID, SELFPAY ==
[2022-02-16 07:57] VITALS: BP 110/59; PULSE 98; RESP 16; TEMP 36.7; O2SAT 100
--- NOTE | 2022-02-16 08:48 | ED.GENADUL_ITS ---
Discharge Plan Disposition Patient Disposition: Home Condition: Stable Discharge Details Clinical Impression: Back pain Primary Care Provider: Pily Bain ED Provider: Rafael Zapata Home Meds and New Rx's Prescriptions: New cyclobenzaprine 10 mg tablet 10 mg PO TID PRN (Reason: muscle spasm) Qty: 20 0RF ibuprofen [IBU] 600 mg tablet 600 mg PO QID PRN (Reason: pain) Qty: 20 0RF Continued polyethylene glycol 3350 [Miralax] 17 GM powder in packet 1 cap PO DAILY PRNQty: 1 albuterol 90 mcg/actuation Aerosol INHALATION PRN PRN sertraline 50 mg tablet 150 mg PO HS Label Comments: TAKE 1 TABLET BY MOUTH ONCE DAILY aripiprazole 10 mg tablet 10 mg PO HS Label Comments: TAKE 1 TABLET BY MOUTH AT BEDTIME dicyclomine 20 mg tablet 20 mg PO QID Qty: 10 0RF risperidone [Risperdal] 0.5 mg Tablet 1 mg PO 1XD Held naproxen [Naprosyn] 500 mg tablet 500 mg PO BID Qty: 20 0RF Hold Instructions: Do not take naproxen and ibuprofen at the same time. Discharge Instructions Instructions: Back Pain (ED) Additional Instructions: Please take medication as prescribed and rest over the next couple days. You may perform gentle range of motion and light activities. Please avoid bending or twisting activities. If you develop any new or significant worsening of symptoms, fever chills, loss of function of your bowel or bladders or dysfunction of your lower extremities return to the emergency department otherwise follow-up with your primary care provider for recheck of your symptoms and further treatment as needed. Stand Alone Forms: Work Release Referrals: Pily Bain [Primary Care Provider] - 2 weeks Discharge Data Discharge Date/Time-TO BE ENTERED AT DEPARTURE: 02/16/22 09:11 Medical Decision Making Patient here for back pain. She states that this has been going on for the past 2 months. Around that same time she did move to a new home but denies any known injury or trauma. Physical exam is unremarkable except for paraspinal tenderness mainly to the left soft tissue of the back. No spinal tenderness, range of motion appropriate, no neurological deficits and no reported extremity symptoms. LOW risk for ABDOMINAL AORTIC ANEURYSM, CAUDA EQUINA SYNDROME, EPIDURAL MASS LESION, SPINAL STENOSIS, OR HERNIATED DISK CAUSING SEVERE STENOSIS, thus I consider the discharge disposition reasonable. We have discussed the diagnosis and risks, and we agree with discharging home to follow- up with their primary doctor. We also discussed returning to the Emergency Department immediately if new or worsening symptoms occur. We have discussed the symptoms which are most concerning (e.g., saddle anesthesia, urinary or bowel incontinence or retention, changing or worsening pain) that necessitate immediate return. Will prescribe patient Flexeril and ibuprofen and place patient on follow-up list for primary care provider reassessment. This documentation was generated using [employer] Studio[employer] system, please disregard any oddities of phrase or misspellings. Sign Out No HPI General Mode of arrival: ambulatory . Date/Time Provider Initiated Documentation: 02/16/22 08:05 . Limitations to Documentation: no limitations . Information obtained by: patient and RN notes reviewed . History of Present Illness 21 year old F presents to the emergency department with the chief complaint of back pain , described as severe, with intensity rated at 8. Quality is described as sharp, and is localized to the back. Patient started experiencing this month(s) (2) and it has been constant. Rest improves symptom(s), Movement worsens symptoms . Patient notes no other symptoms.. Patient did receive the following treatments prior to arrival, NSAID, cold therapy and heat therapy Related Data Home Medications Medication Instructions Recorded Confirmed polyethylene glycol 3350 17 gram 1 cap PO DAILY PRN ##1 09/06/16 02/16/22 oral powder packet (Miralax) albuterol 90 mcg/actuation aerosol inhalation PRN PRN 07/24/21 inhaler sertraline 50 mg tablet 150 mg PO HS 07/24/21 02/16/22 aripiprazole 10 mg tablet 10 mg PO HS 10/21/21 02/16/22 dicyclomine 20 mg tablet 20 mg PO QID #10 tabs 12/28/21 02/16/22 naproxen 500 mg tablet (Naprosyn) 500 mg PO BID #20 tabs 12/28/21 02/16/22 risperidone 0.5 mg tablet 1 mg PO 1XD 01/21/22 02/16/22 (Risperdal) cyclobenzaprine 10 mg tablet 10 mg PO TID PRN muscle spasm #20 02/16/22 tabs ibuprofen 600 mg tablet (IBU) 600 mg PO QID PRN pain #20 tabs 02/16/22 Previous Rx's Medication Instructions Recorded dicyclomine 20 mg tablet 20 mg PO QID #10 tabs 12/28/21 naproxen 500 mg tablet (Naprosyn) 500 mg PO BID #20 tabs 12/28/21 cyclobenzaprine 10 mg tablet 10 mg PO TID PRN muscle spasm #20 02/16/22 tabs ibuprofen 600 mg tablet (IBU) 600 mg PO QID PRN pain #20 tabs 02/16/22 Allergies Allergy/AdvReac Type Severity Reaction Status Date / Time bacitracin AdvReac Intermediate Hives Unverified 02/16/22 08:03 pollen extracts AdvReac Mild regular Unverified 02/16/22 08:03 allergies peanut butter Allergy Uncoded 02/16/22 08:03 General Stated Complaint: Nk/Back Pain STEVE: 4 Review of Systems Constitutional Constitutional: Denies chills and Denies fever(s) Cardiovascular Cardiovascular: Denies chest pain and Denies dyspnea on exertion Respiratory Respiratory: Denies cough and Denies dyspnea on exertion Gastrointestinal Gastrointestinal: Denies abdominal pain, Denies change in bowel habits, Denies diarrhea, Denies nausea and Denies vomiting Genitourinary Genitourinary: Denies urinary incontinence Musculoskeletal Musculoskeletal: Reports as per HPI and Reports back pain Neurologic Neurologic: Denies sensory deficit and Denies paresthesias PFSH All Active Problems (Updated 02/16/22 @ 08:54 by Rafael Zapata NP) Vaginal bleeding (Acute) Back pain (Acute) Allergic rhinitis due to pollen (Acute) Suicidal ideation (Acute) Sad mood (Acute) Depressed (Acute) Deliberate self-cutting (Acute) Hives (Acute) Medical History (Updated 02/16/22 @ 08:54 by Rafael Zapata NP) ADOPTED Attention deficit hyperactivity disorder, predominantly inattentive type Constipation Depression with suicidal ideation & anxiety [facility] 1 wk hospitalization - ended 05/06/15 Wears glasses Social History Smoking/Tobacco Use Status: Current every day Tobacco Type: e-cigarettes Smoking risk assessment performed?: Yes Alcohol Intake: current Alcohol Intake frequency: a few times a month Drug use: Never Substance use type: does not use Do you feel safe at home: Yes Do you feel safe in your relationship?: Yes Exam Const General: cooperative and no acute distress Orientation: alert, awake and oriented x3 Neck Neck: normal visual inspection, full ROM and no meningeal signs Resp Effort & Inspection: normal respiratory effort Auscultation: clear to auscultation bilaterally Cardio Rate: regular rate Rhythm: regular rhythm Heart Sounds: S1 normal and S2 normal GI Palpation: no hepatosplenomegaly, no aortic enlargement, no masses and no pulsatile masses Back/Spine/Pelvis Thoracic/Lumbar Spine: thoracic and lumbar spine normal to inspection, pain with thoraco-lumbar ROM, paraspinal tenderness, No thoraco-lumbar ROM limited, No thoracic spinal tenderness, No lumbar spinal tenderness and No straight leg raise positive Pelvis: no pain with anterior-posterior compression and no pain with lateral compression Neuro General: patient alert, patient awake and patient oriented x3 DTR's: Rt Patellar: 2+, Lt Patellar: 2+, Rt Ankle: 2+ and Lt Ankle: 2+ Extrem Right lower extremity: hip/thigh Details: normal to inspection, knee Details: normal to inspection and lower leg Details: normal to inspection Course Vital Signs Vital signs: Vital Signs Temperature 36.7 C 02/16/22 07:57 Pulse 98 H 02/16/22 07:57 Respiratory Rate 16 02/16/22 07:57 Blood Pressure 110/59 L 02/16/22 07:57 Pulse Oximetry 100 02/16/22 07:57 Temperature 36.7 C 02/16/22 07:57 Temperature Source Temporal Artery Scan 02/16/22 07:57 Pulse 98 H 02/16/22 07:57 Respiratory Rate 16 02/16/22 07:57 Respiratory Effort Non-Labored 02/16/22 08:00 Blood Pressure 110/59 L 02/16/22 07:57 Blood Pressure Position Sitting 02/16/22 07:57 Pulse Oximetry 100 02/16/22 07:57 Oxygen Delivery Method Room Air 02/16/22 07:57 Oxygen Flow Rate 0 02/16/22 07:57 Pain Level 8 02/16/22 08:00 Lab/Test Results Lab/Test Results: POC- Test(urine) Negative PAWSS Have you Been Recently Intoxicated or Drunk Within the Last 30 days?: No Have you Ever Experienced Previous Episodes of Alcohol Withdrawal?: No Have you ever Experienced Withdrawal Seizures?: No Have you ever Experienced Delirium Tremens(DT)s?: No Have you ever undergone Alcohol Rehabilitation Treatment (i.e, inpt ot outpatient treatment programs)?: No Have you ever Experienced Blackouts?: No Have you ever Combined Alcohol with other Downers within the last 90 days?: No Have you ever Combined Alcohol with any other Substance of Abuse during the last 90 days?: No Result: 0
--- NOTE | 2022-02-16 09:00 | NUR.NOTE ---
Nursing Note: PT info faxed to PCP for follow up in one to two weeks for back pain. Ramona, ED
[2022-02-16] MEDS: Lidocaine 5% Patch 1 PATCH TP (09:04)
[2022-02-16] MEDS: Ketorolac 30 MG/ML VIAL IM (09:04)
== END 2022-02-16 09:11 | disposition home or self-care (01) ==
PROVIDERS: Emergency Provider Nurse Practitioner Family; PCP Nurse Practitioner Family
DX: M54.9 Dorsalgia, unspecified (principal)
CPT/HCPCS: 81025; 96372; 99284; 99283; J1885

== ENCOUNTER 2023-01-01 17:58 | Outpatient (REF) | payer MEDICAID, SELFPAY ==
[2023-01-03 14:10] LABS: Chlamydia Result Negative (Negative); GC Result Negative (Negative)
== END 2023-01-01 17:59 | disposition home or self-care (01) ==
LOC: LBN 17:58
PROVIDERS: PCP Nurse Practitioner Family; Visit Provider Nurse Practitioner Family
DX: R35.0 Frequency of micturition (principal); Z11.3 Encounter for screening for infections with a predominantly sexual mode of transmission; N76.0 Acute vaginitis
CPT/HCPCS: 87491; 87591; 87086; 87480; 87510; 87660

== ENCOUNTER 2023-01-25 01:27 | Emergency (ER) | payer MEDICAID, SELFPAY ==
[2023-01-25 01:30] VITALS: BP 127/85; PULSE 100; RESP 16; TEMP 37.1; O2SAT 99
[2023-01-25 01:33] VITALS: BP 127/85; PULSE 100; RESP 14; TEMP 36.9; O2SAT 99
--- NOTE | 2023-01-25 01:43 | ED.GENADUL_ITS ---
Discharge Plan Disposition Patient Disposition: Home Condition: Improving Discharge Details Clinical Impression: Pain in tooth Primary Care Provider: Pily Bain ED Provider: Aramis Christina Home Meds and New Rx's Prescriptions: New amoxicillin-pot clavulanate 875-125 mg tablet 1 tab PO BID 7 Days Qty: 14 0RF No Action polyethylene glycol 3350 [Miralax] 17 GM powder in packet 1 cap PO DAILY PRNQty: 1 albuterol 90 mcg/actuation Aerosol INHALATION PRN PRN sertraline 50 mg tablet 150 mg PO HS Patient Comments: TAKE 1 TABLET BY MOUTH ONCE DAILY aripiprazole 10 mg tablet 10 mg PO HS Patient Comments: TAKE 1 TABLET BY MOUTH AT BEDTIME naproxen [Naprosyn] 500 mg tablet 500 mg PO BID Qty: 20 0RF Hold Instructions: Do not take naproxen and ibuprofen at the same time. dicyclomine 20 mg tablet 20 mg PO QID Qty: 10 0RF risperidone [Risperdal] 0.5 mg Tablet 1 mg PO 1XD cyclobenzaprine 10 mg tablet 10 mg PO TID PRN (Reason: muscle spasm) Qty: 20 0RF ibuprofen [IBU] 600 mg tablet 600 mg PO QID PRN (Reason: pain) Qty: 20 0RF Discharge Instructions Instructions: Toothache (ED) Additional Instructions: Please take medication as prescribed. Please return to the emergency part for any worsening symptoms. Medical Decision Making 22-year-old female presents with painful chipped tooth, chipped a while ago unknown mechanism, just recently started hurting, was seen in urgent care and prescribed penicillin however he never made it to her pharmacy, patient has been using chlorhexidine rinses. Afebrile nontoxic, partially chipped left lower posterior molar, no evidence of superficial or deep space infection. Will start on Augmentin, will provide dental block with bupivacaine 2: 00 in for your alveolar block as well as periapical block performed with 0.5% bupivacaine total of approximately 5 cc. IM Toradol for anti-inflammatory HPI General Date/Time Provider Initiated Documentation: 01/25/23 01:41 . HPI Narrative: 22 yr old female presents with chipped painful tooth; tooth previously chipped, unknown mechanism, just recently started hurting Related Data Home Medications Medication Instructions Recorded Confirmed polyethylene glycol 3350 17 gram 1 cap PO DAILY PRN ##1 09/06/16 02/16/22 oral powder packet (Miralax) albuterol 90 mcg/actuation aerosol inhalation PRN PRN 07/24/21 inhaler sertraline 50 mg tablet 150 mg PO HS 07/24/21 02/16/22 aripiprazole 10 mg tablet 10 mg PO HS 10/21/21 02/16/22 dicyclomine 20 mg tablet 20 mg PO QID #10 tabs 12/28/21 02/16/22 naproxen 500 mg tablet (Naprosyn) 500 mg PO BID #20 tabs 12/28/21 02/16/22 risperidone 0.5 mg tablet 1 mg PO 1XD 01/21/22 02/16/22 (Risperdal) cyclobenzaprine 10 mg tablet 10 mg PO TID PRN muscle spasm #20 02/16/22 tabs ibuprofen 600 mg tablet (IBU) 600 mg PO QID PRN pain #20 tabs 02/16/22 amoxicillin 875 mg-potassium 1 tab PO BID 7 days #14 tabs 01/25/23 clavulanate 125 mg tablet Previous Rx's Medication Instructions Recorded dicyclomine 20 mg tablet 20 mg PO QID #10 tabs 12/28/21 naproxen 500 mg tablet (Naprosyn) 500 mg PO BID #20 tabs 12/28/21 cyclobenzaprine 10 mg tablet 10 mg PO TID PRN muscle spasm #20 02/16/22 tabs ibuprofen 600 mg tablet (IBU) 600 mg PO QID PRN pain #20 tabs 02/16/22 amoxicillin 875 mg-potassium 1 tab PO BID 7 days #14 tabs 01/25/23 clavulanate 125 mg tablet Allergies Allergy/AdvReac Type Severity Reaction Status Date / Time bacitracin AdvReac Intermediate Hives Unverified 02/16/22 08:03 pollen extracts AdvReac Mild regular Unverified 02/16/22 08:03 allergies peanut butter Allergy Uncoded 02/16/22 08:03 General Stated Complaint: DentalOral STEVE: 4 Review of Systems Narrative: Review of Systems Constitutional: negative Eyes: negative ENT: Tooth pain Cardiovascular: negative Respiratory: negative Gastrointestinal: negative : negative Musculoskeletal: negative Skin: negative Neurologic: negative Psych: negative PFSH All Active Problems (Updated 01/25/23 @ 02:00 by Aramis Christina MD) Pain in tooth (Acute) Allergic rhinitis due to pollen (Acute) Suicidal ideation (Acute) Sad mood (Acute) Depressed (Acute) Deliberate self-cutting (Acute) Hives (Acute) Medical History (Updated 01/25/23 @ 02:00 by Aramis Christina MD) Constipation Wears glasses Depression with suicidal ideation & anxiety [facility] 1 wk hospitalization - ended 05/06/15 Attention deficit hyperactivity disorder, predominantly inattentive type ADOPTED Social History Smoking/Tobacco Use Status: Current every day Tobacco Type: e-cigarettes Smoking risk assessment performed?: Yes Alcohol Intake: current Alcohol Intake frequency: a few times a month Drug use: Never Substance use type: does not use Do you feel safe at home: Yes Do you feel safe in your relationship?: Yes Exam Narrative Exam Narrative: Physical Examination General: alert, awake, cooperative, resting comfortably, no acute distress HEENT: normocephalic, atraumatic; PERRL, EOM intact, conjunctiva normal; no nasal discharge; moist mucous membranes, oral and pharyngeal mucosa normal, tolerating secretions; partially chipped left lower posterior molar, no periapical abscess noted Neck: supple, trachea midline; full ROM Chest: normal to inspection Respiratory: normal respiratory effort, speaking in full sentences Skin: no lesions, rashes or trauma appreciated Neuro: AAOx3, normal speech, moving all extremities Course Vital Signs Vital signs: Vital Signs Temperature 37.1 C 01/25/23 01:30 Pulse 100 H 01/25/23 01:30 Respiratory Rate 16 01/25/23 01:30 Blood Pressure 127/85 01/25/23 01:30 Pulse Oximetry 99 01/25/23 01:30 Temperature 36.9 C 01/25/23 01:33 Temperature Source Tympanic 01/25/23 01:33 Pulse 100 H 01/25/23 01:33 Respiratory Rate 14 01/25/23 01:33 Respiratory Effort Normal 01/25/23 01:33 Blood Pressure 127/85 01/25/23 01:33 Blood Pressure Position Standing 01/25/23 01:33 Pulse Oximetry 99 01/25/23 01:33 Oxygen Delivery Method Room Air 01/25/23 01:33 Oxygen Flow Rate 0 01/25/23 01:30 Pain Level 10 01/25/23 01:33
[2023-01-25] MEDS: Amoxicillin 875/Clav. 125 TAB PO (01:46)
[2023-01-25] MEDS: Bupivacaine 0.5% Pres-Free 30 ML VIAL IJ (01:47)
[2023-01-25] MEDS: Ketorolac 15 MG/ML VIAL IM (02:01)
[2023-01-25 02:13] VITALS: PULSE 89; RESP 18; O2SAT 99
== END 2023-01-25 02:14 | disposition home or self-care (01) ==
PROVIDERS: Emergency Provider Emergency Medicine; PCP Nurse Practitioner Family
DX: R68.84 Jaw pain (principal)
CPT/HCPCS: 96372; 99283; J1885

== ENCOUNTER 2023-03-02 17:00 | Emergency (ER) | payer MEDICAID, SELFPAY ==
[2023-03-02 17:12] VITALS: BP 133/74; PULSE 82; RESP 18; O2SAT 100
--- NOTE | 2023-03-02 17:15 | DI.CT_ITS ---
Exam(s) CT HEAD WO EXAM: CT HEAD WO CLINICAL HISTORY: reports possible seizures without prior diagnosis. TECHNIQUE: Imaging Protocol: Axial computed tomography images with coronal and sagittal reformatted images were created and reviewed COMPARISON: No exams were available for comparison FINDINGS: There are no skull fractures. There is no fluid in the visualized paranasal sinuses. There is no evidence of intracranial hemorrhage, mass effect, or shift of midline structures. There are no extra-axial fluid collections. The ventricles are not enlarged or shifted and there is no blo od within the ventricular system nor within the basal cisterns. IMPRESSION: No acute intracranial findings on this noninfused CT scan of the brain. RADIATION DOSE DELIVERED: Total DLP DATA REPOSITORY: All CT scans at this facility are submitted to the National Radiology Data Registry (NRDR) Dose Index Registry (DIR) with the [employer] (A[employer]). RADIATION OPTIMIZATION: All CT scans at this facility use at least one of these dose optimization te chniques: automated exposure control; mA and/or kV adjustment per patient size (includes targeted exa ms where dose is matched to clinical indication); or iterative reconstruction.
--- NOTE | 2023-03-02 17:15 | RT.EKG_ITS ---
APPROVED REPORT Exam: Resting ECG Reason for Exam: reports passing out intermittently Patient Location: E HR:71 bpm ECG Measurements Heart Rate 71 AXIS TN 158 P 52 QRSd 84 QRS 55 QT 396 T 34 QTc 431 Conclusion Sinus rhythm...normal P axis, V-rate 60- 99 Physician: no stemi
[2023-03-02 17:31] VITALS: RESP 20
--- NOTE | 2023-03-02 17:48 | W.ED.GENAD ---
Discharge Plan Disposition Patient Disposition: Home Condition: Stable Discharge Details Clinical Impression: Urinary tract infection, Dental infection Primary Care Provider: Pily Bain ED Provider: Kory Velasquez Home Meds and New Rx's Prescriptions: New amoxicillin-pot clavulanate 875-125 mg tablet 1 tab PO BID 14 Days Qty: 27 0RF Continued albuterol 90 mcg/actuation Aerosol INHALATION PRN PRN aripiprazole 10 mg tablet 10 mg PO HS Patient Comments: TAKE 1 TABLET BY MOUTH AT BEDTIME ibuprofen [IBU] 600 mg tablet 600 mg PO QID PRN (Reason: pain) Qty: 20 0RF Discharge Instructions Instructions: Urinary Tract Infection in Women (ED), Toothache (ED) Additional Instructions: You were seen in the emergency department for your left lower molar dental pain with a dental fracture existing, there is no sign of abscess and this is likely a dental infection treated with the prescribed antibiotic Augmentin sent to [facility] in [place]. We started the first dose this evening, car pick up driver your prescription tomorrow morning. You had an incidental finding of a urinary tract infection on your urine study but a culture is pending, it is reasonable to treat this possible UTI with the same antibiotic Augmentin for your dental infection until culture returns. Your story is not consistent with epileptic seizures, this may be related to generalized brain fog or psychiatric disorder but you may seek a primary care referral to neurology for EEG study for low suspicion of partial seizure. Referrals: Pily Bain [Primary Care Provider] - Discharge Data Discharge Date/Time-TO BE ENTERED AT DEPARTURE: 03/02/23 19:28 Medical Decision Making This dictation utilizes [id number] dictation software and may contain unedited grammatical errors. 22 y/o F presents to ED today with a chief complaint of dental infection, and vague brain fog symptoms that are most noted while driving, states lights bother her and she needs to door puller, denies visual halos of astigmatism, states it improves with short while of resting her eyes. Onset and characteristics include no history of muscle convulsions, no witnessed seizure events, the patient is just concerned with her brain fog symptoms that she is having epilepsy. Patients' medical history: depression. Family and social history: noncontributory. Pertinent exam findings / vital signs include neuro intact without focal abnormality, benign cardiopulmonary status, nontoxic overall, has known dental fracture without signs of gingival abscess, uvula midline. Differential / pathologies of concern include possible partial seizure, dental abscess versus dental infection, psychosomatic symptomology. Diagnostic studies of: -Ibocr-mg-ydkm urine test, EKG, CT head without contrast, creatine kinase, CRP, CMP, alcohol level, lactate, lipase, magnesium, TSH, troponin, complete blood count, ESR, urine drug screen, urinalysis. -CBC benign -CMP benign -UA shows possible UTI, Cx sent -CRP neg -Trop I neg -EKG benign, no arrhythmia, no ischemic changes -CT head wo negative -CK negative, unlikely severe consulsive etiology recently -lactate Wnl Interventions of: -Augmentin was sent for patient's dental infection, not ideal coverage for UTI but does have some coverage and can be altered to target with culture. ED Course/Assessment/Plan: Patient is self discontinued from Risperdal presents for ongoing vague episodes where she reports tiredness that improves with resting her eyes, improves with sleep, having to door puller to rest while driving because oncoming headlights have been bothering her, is also happening during the day now. I did legal counsel her that this was unlikely epilepsy and performed adequate workup for any recent seizure suspicion, the patient has a known dental fracture with a scheduled root canal which I am prescribing antibiotics for without signs of gingival abscess or peritonsillar abscess, incidentally found a UTI. Counseled the patient on if they are continuing to have these vague brain fog type symptoms they could get their primary care provider to refer them to a neurologist for an EEG to definitively rule out partial seizures. Findings not consistent with seizure disorder, significant infection, arrhythmia, meningismus, sepsis. Disposition of Dental Infection, Urinary Tract Infection. Patient verbalized understanding of the plan and return to ED criteria and engaged in shared decision making. Medical Records Medical records reviewed: Yes I reviewed the patient's medical records. Imaging Data Radiologic Study: Imaging: CT Scan Radiologist's impression: Exam: CT Head Without Contrast Exam date and time: 03/02/2023 6:23 PM Age: 22 years old Clinical indication: Patient HX: Reports possible seizures w/o prior diagnosis TECHNIQUE: Imaging protocol: Computed tomography of the head without contrast. COMPARISON: No relevant prior studies available. FINDINGS: Brain: No evidence for acute transcortical infarct. No mass effect or midline shift. No extra-axial collection. No acute intracranial hemorrhage. Basal cisterns are patent. Cerebral ventricles: No ventriculomegaly. Paranasal sinuses: Visualized sinuses are unremarkable. No fluid levels. Mastoid air cells: Visualized mastoid air cells are well aerated. Bones/joints: Unremarkable. No acute fracture. Soft tissues: Unremarkable. IMPRESSION: No hydrocephalus, acute intracranial hemorrhage, or mass effect. Dictated and Authenticated by: Cali Goldsmith MD. Lab Data Lab results reviewed: Yes I reviewed the patient's lab results. Labs: Laboratory Tests Range/Units 03/02/23 03/02/23 18:00 18:25 WBC (4.4-10.8) 10^3/uL 7.75 RBC (3.93-5.22) 10^6/uL 3.89 L Hgb (11.2-15.7) g/dL 11.7 Hct (36.0-46.0) % 35.8 L MCV (80-95) fL 92 MCH (27.0-33.0) pg 30.1 MCHC (32.0-36.0) % 32.7 RDW (11.7-14.6) % 13.3 Plt Count (130-400) 10^3/uL 347 MPV (8.0-11.0) fL 10.5 Immature Gran % 0.3 Neutrophils % 51.9 Lymphocytes % 38.6 Monocytes % 6.8 Eosinophils % 2.1 Basophils % 0.3 Nucleated RBC % (0.0-0.3) % 0.0 Absolute Neutrophils (1.2-6.7) 10^3/uL 4.03 Absolute Lymphocytes (1.2-3.4) 10^3/uL 2.99 Absolute Monocytes (0.1-0.8) 10^3/uL 0.53 Absolute Eosinophils (0.0-0.7) 10^3/uL 0.16 Absolute Basophils (0.0-0.2) 10^3/uL 0.02 ESR (0-20) mm/hr 11 VBG Lactate (0.6-1.4) mmol/L 1.1 Sodium (136-145) mmol/L 142 Potassium (3.5-5.1) mmol/L 3.7 Chloride (98-107) mmol/L 107 Carbon Dioxide (21.0-32.0) mmol/L 26.8 Anion Gap (3-11) mmol/L 8.2 BUN (7-18) mg/dL 18 Creatinine (0.55-1.02) mg/dL 0.7 Est GFR (CKD-EPI 2020) (mL/min/1.73m2) 125.33 Glucose (74-106) mg/dL 97 Calcium (8.5-10.1) mg/dL 8.9 Magnesium (1.8-2.4) mg/dL 2.1 Total Bilirubin (0.2-1.0) mg/dL 0.2 AST (15-37) U/L 13 L ALT (14-59) U/L 18 Alkaline Phosphatase (46-116) U/L 67 Creatine Kinase (26-192) U/L 77 Troponin I (<or=60) ng/L < 50 C-Reactive Protein (0.0-0.3) mg/dL 0.10 Total Protein (6.4-8.2) g/dL 7.1 Albumin (3.4-5.0) g/dL 3.4 Lipase (16-77) U/L 29 TSH (0.36-3.74) uIU/mL 1.05 Urine Color (Yellow) Yellow Urine Clarity (Clear) Cloudy Urine pH (5-8) 6.5 Ur Specific [place] (1.005-1.025) >= 1.030 H Urine Protein (Negative) mg/dL 30 H Urine Ketones (Negative) mg/dL Negative Urine Blood (Negative) Trace-intact H Urine Nitrite (Negative) Negative Urine Bilirubin (Negative) Negative Urine Urobilinogen (Up to 0.2) mg/dL 1.0 H Ur Leukocyte Esterase (Negative) Small H Urine RBC (0-2) HPF 0-2 Urine WBC (0-5) HPF 20-50 H Ur Epithelial Cells (Negative) HPF Many Urine Crystals (Negative) HPF Negative Urine Bacteria (Negative) HPF Moderate Urine Casts (Negative) LPF Negative Urine Mucus (Negative) Negative Ur Culture Indicated? No/Sq. Contamination Urine Glucose (Negative) mg/dL Negative Urine Opiates Screen (Negative) Negative Urine Methadone Screen (Negative) Negative Ur Barbiturates Screen (Negative) Negative Ur Tricyclics Screen (Negative) Negative Ur Amphetamines Screen (Negative) Negative U Benzodiazepines Scrn (Negative) Negative Urine Cocaine Screen (Negative) Negative Ur THC Screen (Negative) Negative Ethyl Alcohol (<10) mg/dL < 3.0 HPI General Date/Time Provider Initiated Documentation: 03/02/23 17:16. HPI Narrative: 22 year-old female presents to ED today by POV/ambulating with a chief complaint of dental infection L lower molar, brain fog with driving at night, progressing to being tired and pulling over, stating sleep improves condition- but is concerned for this behavior as epilepsy but denies any involuntary muscle convulsions with onset over a long period of time, a couple weeks. Quality described as just feels like bright lights from oncoming cars bothers her, and she pulls over and shuts her eyes with improvement. Patient states sleep improves her condition, she has discontinued her risperidone for about a year now, no radiation to fever, loss of consciousness, severe headaches, visual changes, nausea vomiting, vertigo, witnessed seizure history ever, denies hallucinations, endorses gum swelling and dental pain near her left lower second molar with a known fracture that she has a root canal scheduled for. Severity is described as unable to quantify. Palliating factors include nothing specific. Provoking factors include nothing specific. Patient not anticoagulated. Related Data Home Medications Medication Instructions Recorded Confirmed albuterol 90 mcg/actuation aerosol inhalation PRN PRN 07/24/21 inhaler aripiprazole 10 mg tablet 10 mg PO HS 10/21/21 03/02/23 ibuprofen 600 mg tablet (IBU) 600 mg PO QID PRN pain #20 tabs 02/16/22 03/02/23 amoxicillin 875 mg-potassium 1 tab PO BID dental infection 14 03/02/23 clavulanate 125 mg tablet days #27 tabs Previous Rx's Medication Instructions Recorded ibuprofen 600 mg tablet (IBU) 600 mg PO QID PRN pain #20 tabs 02/16/22 amoxicillin 875 mg-potassium 1 tab PO BID dental infection 14 03/02/23 clavulanate 125 mg tablet days #27 tabs Allergies Allergy/AdvReac Type Severity Reaction Status Date / Time bacitracin AdvReac Intermediate Hives Unverified 03/02/23 17:15 pollen extracts AdvReac Mild regular Unverified 03/02/23 17:15 allergies peanut butter Allergy Uncoded 03/02/23 17:15 General Stated Complaint: GenMedical STEVE: 3 Review of Systems All systems reviewed & are unremarkable except as noted in HPI and below PFSH All Active Problems (Updated 03/02/23 @ 19:11 by KIAN Jang) Dental infection (Acute) Urinary tract infection (Acute) Allergic rhinitis due to pollen (Acute) Suicidal ideation (Acute) Sad mood (Acute) Depressed (Acute) Deliberate self-cutting (Acute) Hives (Acute) Medical History (Updated 03/02/23 @ 19:11 by KIAN Jang) Constipation Wears glasses Depression with suicidal ideation & anxiety [facility] 1 wk hospitalization - ended 05/06/15 Attention deficit hyperactivity disorder, predominantly inattentive type ADOPTED Social History Smoking/Tobacco Use Status: Current every day Tobacco Type: e-cigarettes Smoking risk assessment performed?: Yes Alcohol Intake: current Alcohol Intake frequency: a few times a month Drug use: Never Substance use type: does not use Housing: apartment Do you feel safe at home: Yes Do you feel safe in your relationship?: Yes Exam Narrative Exam Narrative: GENERAL APPEARANCE: Well-nourished, non-toxic, awake and alert, atraumatic, no acute distress. SKIN: Warm, pink, dry, intact, without rashes/lesions/ulcerations. HEAD: Normocephalic, atraumatic, normal hair distribution for gender/age. EYES: Pupils PERRLA, EOMs intact without nystagmus, normal conjunctiva, no exudates on lids/lashes. ENT: Nares patent, no circumoral cyanosis, no facial swelling, dental fracture L lower 2nd molar, mild gingival swelling without fluctuant absecess, uvula midline NECK: Supple, trachea midline, painless cervical ROM. LUNGS/CHEST: Lungs CTA bilaterally, non-labored respirations, normal A/P diameter, symmetrical expansion, no chest wall deformity HEART (CV/PV): Regular rate and rhythm without murmur, no peripheral edema, no JVD. ABDOMEN: Soft, non-distended, no guarding. MSK: Normal ROM, no swelling/deformity to bilateral UEs or LEs, moving all extremities without weakness, no cyanosis, spine midline without tenderness, normal curvature. NEURO: Mental Status AAOx4 - alert to person, place, time, events No facial droop, no forehead involvement. Motor: No focal weakness - strength 5/5 in bilateral UEs and LEs, proximal and distal, symmetric. Sensory: sensation intact to light touch globally. Gait normal: patient ambulated without ataxia into ED room. PSYCH: euthymic, cooperative, pleasant, appropriate speech Course 03/02/23 17:17 POC Urine Test .Urine Test CT head wo [CT] Stat ED EKG Stat EKG Nursing/RT Intervention .STAT 03/02/23 18:00 CK [Creatine Kinase] Stat CRP [C-Reactive Protein] Stat Comprehensive Metabolic Panel Stat Ethyl Alcohol Stat Lactate Stat Lipase Stat Magnesium Stat TSH (W/Ref FT4) Stat Troponin [Cardiac Troponin I] Stat Complete Blood Count w/Diff [HEMO] Stat ESR [HEMO] Stat 03/02/23 18:25 Urine Drug Screen ([facility]) Stat Microscopic Findings [URIN] Stat Urinalysis [URIN] Stat 03/02/23 19:14 Amoxicillin 875/Clav. 125 [Augmentin 875-125 Tablet] 1 tab PO NOW ONE Vital Signs Vital signs: Vital Signs Pulse 82 03/02/23 17:12 Respiratory Rate 18 03/02/23 17:12 Blood Pressure 133/74 03/02/23 17:12 Pulse Oximetry 100 03/02/23 17:12 Temperature Source Skin 03/02/23 17:12 Pulse 82 03/02/23 17:12 Respiratory Rate 20 03/02/23 17:31 Respiratory Effort Normal 03/02/23 17:33 Respiratory Depth Normal 03/02/23 17:31 Respiratory Pattern Normal 03/02/23 17:31 Blood Pressure 133/74 03/02/23 17:12 Blood Pressure Position Sitting 03/02/23 17:12 Pulse Oximetry 100 03/02/23 17:12 Oxygen Delivery Method Room Air 03/02/23 17:12 Oxygen Flow Rate 0 03/02/23 17:12 Pain Level 7 03/02/23 17:12
[2023-03-02 18:04] LABS: Lactate 1.1 mmol/L (0.6-1.4)
[2023-03-02 18:07] LABS: Abs Immature Grans 0.02 10^3/uL (0.0-0.06); Absolute Basophil Count 0.02 10^3/uL (0.0-0.2); Absolute Eosinophil Count 0.16 10^3/uL (0.0-0.7); Absolute Lymphocyte Count 2.99 10^3/uL (1.2-3.4); Absolute Monocyte Count 0.53 10^3/uL (0.1-0.8); Absolute Neutrophil Count 4.03 10^3/uL (1.2-6.7); Basophils % 0.3; Eosinophils % 2.1; HCT 35.8 % (36.0-46.0); HGB 11.7 g/dL (11.2-15.7); Immature Grans % 0.3; Lymphocytes % 38.6; MCH 30.1 pg (27.0-33.0); MCHC 32.7 % (32.0-36.0); MCV 92 fL (80-95); MPV 10.5 fL (8.0-11.0); Monocytes % 6.8; Neutrophils % 51.9; Platelet Count 347 10^3/uL (130-400); RBC 3.89 10^6/uL (3.93-5.22); RDW 13.3 % (11.7-14.6); RDW-SD 45.1 fL; WBC 7.75 10^3/uL (4.4-10.8)
[2023-03-02 18:10] LABS: ESR 11 mm/hr (0-20)
[2023-03-02 18:31] LABS: Bilirubin Negative (Negative); Blood Trace-intact (Negative); Clarity Cloudy (Clear); Glucose Negative (Negative); Ketones Negative (Negative); Leukocyte Esterase Small (Negative); Nitrite Negative (Negative); Specific Gravity >= 1.030 (1.005-1.025); pH 6.5 (5-8)
[2023-03-02 18:32] LABS: ALT 18 U/L (14-59); AST 13 U/L (15-37); Albumin 3.4 g/dL (3.4-5.0); Alkaline Phosphatase 67 U/L (46-116); Anion Gap 8.2 mmol/L (3-11); BUN 18 mg/dL (7-18); Bilirubin, Total 0.2 mg/dL (0.2-1.0); CO2 26.8 mmol/L (21.0-32.0); CREATININE 0.7 mg/dL (0.55-1.02); Calcium 8.9 mg/dL (8.5-10.1); Chloride 107 mmol/L (98-107); Estimated GFR 125.33 (mL/min/1.73m2); Glucose 97 mg/dL (74-106); Lipase 29 U/L (16-77); Magnesium 2.1 mg/dL (1.8-2.4); Potassium 3.7 mmol/L (3.5-5.1); Sodium 142 mmol/L (136-145); TSH (W/Ref FT4) 1.05 uIU/mL (0.36-3.74); Total Protein 7.1 g/dL (6.4-8.2)
[2023-03-02 18:36] LABS: ETHANOL BLOOD < 3.0 mg/dL (<10); Troponin I < 50 ng/L (<or=60)
[2023-03-02 18:47] LABS: *AMPHETAMINES SCREEN URINE Negative (Negative); *BARBITURATES SCREEN URINE Negative (Negative); *BENZODIAZEPINES SCREEN URINE Negative (Negative); Cannabinoids THC Negative (Negative); Cocaine Screen,Urine Negative (Negative); METHADONE URINE SCREEN Negative (Negative); OPIATES URINE SCREEN Negative (Negative)
[2023-03-02 18:49] LABS: Tricyclic Antidepressants Negative (Negative)
[2023-03-02 18:51] LABS: Creatine Kinase 77 U/L (26-192)
--- NOTE | 2023-03-02 18:54 | DI.VRAD_ITS ---
PROCEDURE INFORMATION: Exam: CT Head Without Contrast Exam date and time: 03/02/2023 6:23 PM Age: 22 years old Clinical indication: Patient HX: Reports possible seizures w/o prior diagnosis TECHNIQUE: Imaging protocol: Computed tomography of the head without contrast. COMPARISON: No relevant prior studies available. FINDINGS: Brain: No evidence for acute transcortical infarct. No mass effect or midline shift. No extra-axial collection. No acute intracranial hemorrhage. Basal cisterns are patent. Cerebral ventricles: No ventriculomegaly. Paranasal sinuses: Visualized sinuses are unremarkable. No fluid levels. Mastoid air cells: Visualized mastoid air cells are well aerated. Bones/joints: Unremarkable. No acute fracture. Soft tissues: Unremarkable. IMPRESSION: No hydrocephalus, acute intracranial hemorrhage, or mass effect. Dictated and Authenticated by: Cali Goldsmith MD. Ordering:YESSICA Horn MD
[2023-03-02 18:55] LABS: Bacteria Moderate HPF (Negative); C & S Indicated? No/Sq. Contamination; Casts Negative LPF (Negative); Crystals Negative HPF (Negative); Epithelial Cells Many HPF (Negative); Mucus Negative (Negative); RBC 0-2 HPF (0-2); WBC 20-50 HPF (0-5)
[2023-03-02] MEDS: Amoxicillin 875/Clav. 125 TAB PO (19:22)
== END 2023-03-02 19:28 | disposition home or self-care (01) ==
PROVIDERS: Emergency Provider Physician Assistant; PCP Nurse Practitioner Family
DX: R68.84 Jaw pain (principal); K04.7 Periapical abscess without sinus; N39.0 Urinary tract infection, site not specified
CPT/HCPCS: 80053; 80307; 81025; 82550; 83690; 85652; 93005; 99283; 70450; 80320; 81003; 81015; 83605; 83735; 84443; 84484; 85025; 86140; 93010

== ENCOUNTER 2023-04-05 15:28 | Emergency (ER) | payer MEDICAID, SELFPAY ==
--- NOTE | 2023-04-05 15:30 | DI.US_ITS ---
Exam(s) US LOWER EXTREMITY VENOUS LT EXAM: US LOWER EXTREMITY VENOUS LT CLINICAL HISTORY: DVT r/o, L leg pain, Homans+ TECHNIQUE: Left lower extremity venous ultrasound performed using grayscale, color-flow, and spectra l Doppler analysis. COMPARISON: No exams were available for comparison FINDINGS: The left common femoral, femoral and popliteal veins demonstrate normal compressibility, augmentation , and color Doppler. The posterior tibial and peroneal veins are patent. The saphenofemoral junction is unremarkable. There is no evidence of a Lees cyst. The soft tissues are unremarkable. IMPRESSION: No evidence of a left lower extremity DVT. DATA REPOSITORY:
[2023-04-05 15:32] VITALS: BP 114/70; PULSE 95; RESP 18; TEMP 37.1; O2SAT 99
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
== END 2023-04-05 17:16 | disposition home or self-care (01) ==
PROVIDERS: Emergency Provider Physician Assistant; PCP Nurse Practitioner Family
DX: L03.116 Cellulitis of left lower limb (principal); I89.1 Lymphangitis; F17.290 Nicotine dependence, other tobacco product, uncomplicated
CPT/HCPCS: 99284; 93971; 99283

== ENCOUNTER 2023-04-18 21:14 | Emergency (ER) | payer MEDICAID, SELFPAY ==
[2023-04-18 21:17] VITALS: BP 122/73; PULSE 88; RESP 20; TEMP 36.4; O2SAT 100
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
[2023-04-18] MEDS: Acetaminophen 500 MG TAB 1000 MG PO (21:30)
[2023-04-18] MEDS: Methocarbamol 500 MG TAB 1000 MG PO (21:30)
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
== END 2023-04-18 22:04 | disposition home or self-care (01) ==
PROVIDERS: Emergency Provider Emergency Medicine; PCP Nurse Practitioner Family
DX: R51.9 Headache, unspecified (principal); V43.52XA Car driver injured in collision with other type car in traffic accident, initial encounter; Z87.891 Personal history of nicotine dependence
CPT/HCPCS: 99284; 70450; 70486

== ENCOUNTER 2023-07-12 18:35 | Emergency (ER) | payer MEDICAID, SELFPAY ==
[2023-07-12 18:37] VITALS: BP 108/65; PULSE 72; RESP 16; TEMP 36.8; O2SAT 98
--- NOTE | 2023-07-12 18:49 | ED.GENADUL_ITS ---
Discharge Plan Disposition Patient Disposition: Home Discharge Details Clinical Impression: Acute periapical abscess Primary Care Provider: Pily Bain ED Provider: Hawk Panda Home Meds and New Rx's Prescriptions: New amoxicillin-pot clavulanate 875-125 mg tablet 1 tab PO BID 7 Days Qty: 14 0RF ondansetron 4 mg tablet,disintegrating 4 mg PO BID 5 Days Qty: 10 0RF Continued albuterol 90 mcg/actuation Aerosol 2 mcg INHALATION PRN PRN Discharge Instructions Instructions: Dental Abscess (ED) Additional Instructions: You are seen in the emergency department for your dental pain. You are receiving an antibiotic that you should take as directed. As we discussed if you have difficulty breathing or shortness of breath or any other concerns please return to the emergency department. Otherwise please call your dentist on Saturday for follow-up. For your pain please take medications as follows: 1. Take acetaminophen (Tylenol), 1,000 mg (two 500 mg tabs) every 6 hours [2. Take ibuprofen (Advil), 400 mg every 6 hours.] Discharge Data Discharge Date/Time-TO BE ENTERED AT DEPARTURE: 07/12/23 19:18 HPI General Date/Time Provider Initiated Documentation: 07/12/23 18:48 . HPI Narrative: MDM This is a previously healthy normothermic and not tachycardic 22-year-old female with percussive tenderness to her tooth #2 concerning for periapical abscess for which she will receive 7 days of amoxicillin clavulanic acid with outpatient dental follow-up. No pain out of proportion to suggest necrotizing soft tissue infection. No brawny edema submentally to suggest Kuldeep's angina. Uvula midline so I am not concerned for retropharyngeal abscess. Good range of motion in neck so 0 suspicion for retropharyngeal abscess. No documented fevers nor any nuchal rigidity so my suspicion is low for meningitis. Patient and I discussed staying hydrated and given her moist mucous membranes I did not feel that she required IV assessment of her electrolytes. She is not tachypneic nor hypoxic nor wheezing so I am not suspicious for any acute exacerbation of her reactive airway disease. She has been taking acetaminophen but patient her dose s of not concern for acetaminophen toxicity so I did not check acetaminophen level. Patient and I discussed return to the emergency department for any shortness of breath worsening swelling or pain or any other concerns. Otherwise I advised calling her dentist on Saturday morning, in 3 days. Patient understood her return indications and was discharged with empiric trial of expectant outpatient management. HPI This is a previously healthy 22-year-old female arrived to the emergency department via private vehicle in the setting of right-sided dental pain. Patient reportedly has a hole in her second tooth. She feels that for the past several days she has had worsening pain and that infection has developed. She says that she has been taking 200 mg of acetaminophen every 4 hours. She says that this does not improve her symptoms. She is a daily tobacco user and rarely drinks ethanol denies illicit drug use. She does note that she has had a fever up to 101 102 ?F as taken at home. She called her dentist but was advised to receive treatment for her dental infection with antibiotics prior to extraction. She has not been vomiting but does occasionally feel nauseous. She denies emely st pain but has a baseline shortness of breath secondary to her asthma. She reports that she would not have come to the emergency department for her breathing. Exam General: Well-appearing in no acute distress speaking in complete sentences. Head: Normocephalic, atraumatic. Eye: Extraocular eye movements intact. No conjunctival injection. No scleral icterus. Ear, nose, mouth, throat: Tooth #2 with percussive tenderness. No brawny edema submentally. Uvula midline. Good range of motion in neck. Handling secretions. Moist mucous membranes. Neck: Trachea midline. Cardiovascular: Well-perfused distal extremities. Respiratory: Nonlabored respiration. Gastrointestinal: Nondistended abdomen. Musculoskeletal: No edema. Moving all 4 extremities spontaneously. Skin: Normal for age and race, grossly normal temperature and turgor. No acute rash. Neurologic: Alert and appropriate, no apparent acute deficits. Psychiatric: Mood and manner are appropriate. Grooming and personal hygiene are appropriate. Related Data Home Medications Medication Instructions Recorded Confirmed albuterol 90 mcg/actuation aerosol 2 mcg inhalation PRN PRN 07/24/21 07/12/23 inhaler amoxicillin 875 mg-potassium 1 tab PO BID 7 days #14 tabs 07/12/23 clavulanate 125 mg tablet ondansetron 4 mg disintegrating 4 mg PO BID 5 days #10 tabs 07/12/23 tablet Previous Rx's Medication Instructions Recorded amoxicillin 875 mg-potassium 1 tab PO BID 7 days #14 tabs 07/12/23 clavulanate 125 mg tablet ondansetron 4 mg disintegrating 4 mg PO BID 5 days #10 tabs 07/12/23 tablet Allergies Allergy/AdvReac Type Severity Reaction Status Date / Time bacitracin AdvReac Intermediate Hives Unverified 07/12/23 18:48 pollen extracts AdvReac Mild regular Unverified 07/12/23 18:48 allergies peanut butter Allergy Anaphylaxis Uncoded 07/12/23 18:48 General Stated Complaint: DentalOral STEVE: 4 Course Vital Signs Vital signs: Vital Signs Temperature 36.8 C 07/12/23 18:37 Pulse 72 07/12/23 18:37 Respiratory Rate 16 07/12/23 18:37 Blood Pressure 108/65 07/12/23 18:37 Pulse Oximetry 98 07/12/23 18:37 Temperature 36.8 C 07/12/23 18:37 Temperature Source Tympanic 07/12/23 18:37 Pulse 72 07/12/23 18:37 Respiratory Rate 16 07/12/23 18:37 Respiratory Effort Normal 07/12/23 18:42 Blood Pressure 108/65 07/12/23 18:37 Blood Pressure Position Sitting 07/12/23 18:37 Pulse Oximetry 98 07/12/23 18:37 Oxygen Delivery Method Room Air 07/12/23 18:37 Oxygen Flow Rate 0 07/12/23 18:37 Pain Level 7 07/12/23 18:42 Medical Decision Making Quality:SDOH Health Related Social Needs: No Data to Display PFSH All Active Problems (Updated 07/12/23 @ 19:09 by Hawk Panda MD) Acute periapical abscess (Acute) Allergic rhinitis due to pollen (Acute) Suicidal ideation (Acute) Sad mood (Acute) Depressed (Acute) Deliberate self-cutting (Acute) Hives (Acute) Medical History (Updated 07/12/23 @ 19:09 by Hawk Panda MD) Constipation Wears glasses Depression with suicidal ideation & anxiety [facility] 1 wk hospitalization - ended 05/06/15 Attention deficit hyperactivity disorder, predominantly inattentive type ADOPTED Social History Smoking/Tobacco Use Status: Current every day Tobacco Type: cigarettes and e- cigarettes Smoking risk assessment performed?: Yes Alcohol Intake: current Alcohol Intake frequency: a few times a month Drug use: Occasionally Substance use type: does not use and marijuana Housing: apartment Do you feel safe at home: Yes Do you feel safe in your relationship?: Yes
[2023-07-12] MEDS: Ibuprofen 400 MG TAB PO (19:18)
[2023-07-12] MEDS: Amoxicillin 875/Clav. 125 TAB PO (19:18)
== END 2023-07-12 19:18 | disposition home or self-care (01) ==
PROVIDERS: Emergency Provider Emergency Medicine; PCP Nurse Practitioner Family
DX: K04.7 Periapical abscess without sinus (principal)
CPT/HCPCS: 99283

== ENCOUNTER 2023-08-16 23:05 | Emergency (ER) | payer MEDICAID, SELFPAY ==
[2023-08-16 23:08] VITALS: BP 101/71; PULSE 73; RESP 18; TEMP 36.6; O2SAT 100
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
[2023-08-16] MEDS: Ibuprofen 800 MG TAB PO (23:29)
== END 2023-08-16 23:31 | disposition home or self-care (01) ==
PROVIDERS: Emergency Provider Student in an Organized Health Care Education/Training Program; PCP Nurse Practitioner Family
DX: R68.84 Jaw pain (principal); K08.89 Other specified disorders of teeth and supporting structures
CPT/HCPCS: 64400

== ENCOUNTER 2023-08-18 09:35 | Emergency (ER) | payer MEDICAID, SELFPAY ==
[2023-08-18 09:41] VITALS: BP 116/72; PULSE 88; RESP 16; TEMP 36.8; O2SAT 100
--- NOTE | 2023-08-18 09:45 | DI.CT_ITS ---
Exam(s) CT BRAIN NECK CTA EXAM: CT BRAIN NECK CTA CLINICAL HISTORY: tinnitus and headaches, ?dissection. TECHNIQUE: Imaging Protocol: Axial CT angiography was performed with multi-slice acquisition and mu lti-planar and/or 3D reconstructions. CONTRAST MATERIAL: Intravenous: Omnipaque 350 Contrast volume:structured data in ml COMPARISON: CT CT ABDOMEN PELVIS W from 12/28/2021 FINDINGS: CTA Neck W: Aortic arch anatomy: The aortic arch anatomy is conventional and there is no significant stenosis at the origin of the great vessels off of the aortic arch. No intimal flap evident. Anterior circulation: Both common carotid arteries ascend with normal luminal diameters. At the level the carotid bulbs and proximal internal carotid arteries there is minimal plaque without hemodynamically significant stenosis evident. Posterior circulation: Both vertebral arteries originate in conventional fashion off of the subclavian arteries and there is no obvious stenosis at the origin of the vertebral arteries. Both vertebral arteries exhibit normal luminal diameters within the foramen transversarium. No signi ficant stenosis. No dissection Both vertebral arteries contribute to the formation of the basilar artery at the skull base. CTA Brain W: Anterior circulation: Both internal carotid arteries are patent in the skull base-carotid canals as well as within the cave rnous sinuses. The supraclinoid aspects of the ICAs are patent. Both A1 segments are patent as are the anterior cer ebral arteries and there is no evidence of aneurysm at the level of the anterior communicating artery . Both middle cerebral arteries are patent with no evidence of significant stenosis nor intraluminal th rombus. There also no aneurysms of these vessels. Posterior circulation: The basilar artery ascends in the midline. Distally it gives off patent bilateral superior cerebella r arteries. Above this level the basilar artery terminates as patent bilateral posterior cerebral arteries. There is no evidence of aneurysm at the tip of the basilar artery nor elsewhere in the [id number] is. CT BRAIN: There is no evidence of intracranial hemorrhage, mass effect, or shift of midline structures. There are no extra-axial fluid collections. Ventricles are not enlarged or shifted. There are no ring enh ancing lesions in the brain and no abnormal meningeal enhancement. IMPRESSION: 1. Patent carotid arteries in the neck. No hemodynamically significant stenosis. No dissection 2. Patent vertebral arteries. No significant stenosis. No dissection. 3. Patent intracranial arteries. No dissection. No aneurysms. 4. No ring enhancing lesions in the brain. No abnormal meningeal enhancement. RADIATION DOSE DELIVERED: 2,412.43mGy.cm Total DLP DATA REPOSITORY: All CT scans at this facility are submitted to the National Radiology Data Registry (NRDR) Dose Index Registry (DIR) with the [employer] (ACR). RADIATION OPTIMIZATION: All CT scans at this facility use at least one of these dose optimization te chniques: automated exposure control; mA and/or kV adjustment per patient size (includes targeted exa ms where dose is matched to clinical indication); or iterative reconstruction.
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
[2023-08-18] MEDS: Ondansetron 4 MG/2 ML VIAL IVP (10:11)
[2023-08-18] MEDS: LORazepam 2 MG/ML VIAL 1 MG IVP (10:12)
[2023-08-18] MEDS: Normal Saline 1,000 ML 1000 ML IV (10:12)
[2023-08-18 10:25] LABS: Abs Immature Grans 0.03 10^3/uL (0.0-0.06); Absolute Basophil Count 0.02 10^3/uL (0.0-0.2); Absolute Eosinophil Count 0.05 10^3/uL (0.0-0.7); Absolute Lymphocyte Count 3.69 10^3/uL (1.2-3.4); Absolute Monocyte Count 0.59 10^3/uL (0.1-0.8); Absolute Neutrophil Count 4.52 10^3/uL (1.2-6.7); Basophils % 0.2 %; Eosinophils % 0.6 %; HCT 40.6 % (36.0-46.0); HGB 13.3 g/dL (11.2-15.7); Immature Grans % 0.3 %; Lymphocytes % 41.5 %; MCHC 32.8 % (32.0-36.0); MCV 91 fL (80-95); MPV 10.6 fL (8.0-11.0); Monocytes % 6.6 %; Neutrophils % 50.8 %; Platelet Count 433 10^3/uL (130-400); RBC 4.44 10^6/uL (3.93-5.22); RDW 14.1 % (11.7-14.6); RDW-SD 47.1 fL
[2023-08-18 10:26] VITALS: BP 116/72; PULSE 88; RESP 16; TEMP 36.8; O2SAT 100
[2023-08-18 10:51] LABS: ALT 20 U/L (14-59); AST 14 U/L (15-37); Albumin 4.2 g/dL (3.4-5.0); Alkaline Phosphatase 79 U/L (46-116); Anion Gap 13.1 mmol/L (3-11); BUN 13 mg/dL (7-18); Bilirubin, Total 0.3 mg/dL (0.2-1.0); CO2 20.9 mmol/L (21.0-32.0); CREATININE 0.8 mg/dL (0.55-1.02); Calcium 8.9 mg/dL (8.5-10.1); Chloride 107 mmol/L (98-107); Estimated GFR 106.11 (mL/min/1.73m2); Glucose 91 mg/dL (74-106); Magnesium 2.1 mg/dL (1.8-2.4); Potassium 3.6 mmol/L (3.5-5.1); Sodium 141 mmol/L (136-145); TSH (W/Ref FT4) 0.28 uIU/mL (0.36-3.74); Total Protein 8.7 g/dL (6.4-8.2)
[2023-08-18 11:06] LABS: HCG Qual (Serum) Negative
[2023-08-18 11:09] LABS: Salicylate 24.7 mg/dL (<2.8)
[2023-08-18 11:09] LABS: ETHANOL BLOOD < 3.0 mg/dL (<10)
[2023-08-18 11:10] LABS: Acetaminophen < 2 ug/mL (10-30)
[2023-08-18] MEDS: Omnipaque 350 MG/ML 100 ML BTL IJ (11:15)
[2023-08-18] MEDS: Normal Saline - Diluent 50 ML VIAL IJ (11:17)
--- NOTE | 2023-08-18 12:44 | DI.VRAD_ITS ---
Addendum created by Darrius Jenkins MD on 08/18/2023 12:48:38 PM EDT: ADDENDUM: Bilateral maxillary sinusitis. There is no dehiscence of carotid canal or at the level of jugular foramen. Initial report created on 08/18/2023 12:43:48 PM EDT: PROCEDURE INFORMATION: Exam: CTA Head With Contrast, Arteriography Exam date and time: 08/18/2023 11:19 AM Age: 23 years old Clinical indication: Other: Tinnitus and headaches, ? dissection TECHNIQUE: Imaging protocol: Computed tomographic angiography of the head with contrast. Exam focused on the arteries. 3D rendering (Not supervised by radiologist): MIP and/or 3D reconstructed images were created by the technologist. Contrast material: OMNI 350; Contrast volume: 85 ml; Contrast route: INTRAVENOUS (IV); COMPARISON: CT HEAD FACIAL WO 04/18/2023 9:37 PM FINDINGS: Limitations: None significant. ANTERIOR CIRCULATION: Right internal carotid artery: Normal. Right middle cerebral artery: Normal. Right anterior cerebral artery: Normal. Left internal carotid artery: Normal. Left middle cerebral artery: Normal. Left anterior cerebral artery: Normal. POSTERIOR CIRCULATION: Right vertebral artery: Normal. Left vertebral artery: Normal. Basilar artery: Normal. Right posterior cerebral artery: Normal. Left posterior cerebral artery: Normal. Veins: Normal opacification of the central dural sinuses and major intracranial veins. Brain: No abnormal enhancement of the brain parenchyma, meninges or dura. Age appropriate brain volume. No focal encephalomalacia or transcortical defect. No significant white matter hypodensity. Cerebral ventricles: Size and configuration is proportional to brain volume Orbital cavities: Normal. Mastoid air cells: Clear. Paranasal sinuses: Bilateral maxillary mucosal thickening. Bones/joints: Intact. No suspicious lesions. Soft tissues: Unremarkable. IMPRESSION: Normal. No vascular disease. Negative for dissection. PROCEDURE INFORMATION: Exam: CTA Neck With Contrast Exam date and time: 08/18/2023 11:19 AM Age: 23 years old Clinical indication: Other: Tinnitus and headaches, ? dissection TECHNIQUE: Imaging protocol: Computed tomographic angiography of the neck with contrast. Exam focused on the cervical segments of the vasculature. 3D rendering (Not supervised by radiologist): MIP and/or 3D reconstructed images were created by the technologist. Radiation optimization: All CT scans at this facility use at least one of these dose optimization techniques: automated exposure control; mA and/or kV adjustment per patient size (includes targeted exams where dose is matched to clinical indication); or iterative reconstruction. Contrast material: OMNI 350; Contrast volume: 85 ml; Contrast route: INTRAVENOUS (IV); COMPARISON: CT HEAD FACIAL WO 04/18/2023 9:37 PM FINDINGS: Right common carotid artery: Normal. Right internal carotid artery: Normal. Right external carotid artery: Normal. Left common carotid artery: Normal. Left internal carotid artery: Normal. Left external carotid artery: Normal. Right vertebral artery: Normal. Left vertebral artery: Normal. Brachiocephalic artery: Normal. Right subclavian artery: Normal. Left subclavian artery: Normal. Aorta: Normal. Veins: Not sufficiently assessed with the arterial phase technique. Thyroid: No suspicious lesions. Lymph nodes: None enlarged or otherwise suspicious. Soft tissues: Unremarkable. Bones/joints: No fracture or suspicious lesion. Spine degenerative changes without significant appearing central stenosis. Lungs: Clear. IMPRESSION: No stenosis or occlusion. No acute or suspicious findings. REFERENCES: NASCET CRITERIA. The degree of stenosis in the cervical segment of the internal carotid artery is based on NASCET criteria. Normal is no stenosis. Mild is less than 50% stenosis. Moderate is 50-69% stenosis. Severe is 70% to 99% stenosis. Total occlusion is no detectable patent lumen. Dictated and Authenticated by: Drarius Jenkins MD. Ordering:ALTHEA Peguero MD
[2023-08-18 13:17] LABS: Bilirubin Negative (Negative); Blood Negative (Negative); Clarity Clear (Clear); Glucose Negative (Negative); Ketones 15 mg/dL (Negative); Leukocyte Esterase Negative (Negative); Nitrite Negative (Negative); Specific Gravity <= 1.005 (1.005-1.025); Urobilinogen 0.2 mg/dL (Up to 0.2); pH 5.5 (5-8)
[2023-08-18 13:29] LABS: *AMPHETAMINES SCREEN URINE Negative (Negative); *BARBITURATES SCREEN URINE Negative (Negative); *BENZODIAZEPINES SCREEN URINE Negative (Negative); Cannabinoids THC Negative (Negative); Cocaine Screen,Urine Negative (Negative); METHADONE URINE SCREEN Negative (Negative); OPIATES URINE SCREEN Negative (Negative)
[2023-08-18 13:30] LABS: Tricyclic Antidepressants Negative (Negative)
== END 2023-08-18 13:20 | disposition home or self-care (01) ==
PROVIDERS: Emergency Provider Emergency Medicine; PCP Nurse Practitioner Family
DX: R11.2 Nausea with vomiting, unspecified (principal); H93.13 Tinnitus, bilateral; K08.89 Other specified disorders of teeth and supporting structures; F17.210 Nicotine dependence, cigarettes, uncomplicated; F17.290 Nicotine dependence, other tobacco product, uncomplicated
CPT/HCPCS: 36415; 70496; 70498; 80053; 80307; 96360; 96361; 99285; 80320; 80329; 81003; 83735; 84439; 84443; 84703; 85025; 99284; J2060; J2405; J3490

== ENCOUNTER 2023-10-12 09:34 | Emergency (ER) | payer MEDICAID, SELFPAY ==
--- OUTSIDE RECORDS SUMMARY | 2023-10-12 09:39 | XMS_ITS | Clinical Summary ---
Author Organization [facility] [place] [address] Care Team Providers Care Belt Notcher Name Role Phone Kaitlynn Horner MD Primary Care Provider [phone] Medications Medication Sig Dispensed Refills Start Date End Date Status guanFACINE (TENEX) 1 mg tablet Take 1 tablet by mouth nightly. 30 tablet 3 07/24/2013 Active Social History Tobacco Use Types Packs/Day Years Used Date Smoking Tobacco: Never Assessed Sex and Gender Information Value Date Recorded Sex Assigned at Not on file Gender Identity Not on file Sexual Orientation Not on file Plan of Treatment Health Maintenance Due Date Last Done Comments Chlamydia Screening 07/16/2015 HPV vaccine (1 - 3-dose series) 07/16/2015 HIV screen 2018 Hepatitis C Screening 2018 Hepatitis B vaccine (0-59 yrs) (1) 07/16/2019 Tdap adult 07/16/2019 Tetanus vaccine 07/16/2019 PAP Smear 2021 Covid-19 Vaccine ( - 2022-24 season) 2022 Influenza (Flu) vaccine (1 o f 1 - Influenza standard series) 12/01/2023 Insurance Payer Benefit Plan / Group Subscriber ID Effective Dates Phone Address Type [facility] [id number] 2010-Present Care Teams Belt Notcher Relationship Specialty Start Date End Date Kaitlynn Horner MD [address] [place] [address] [place] [address] PCP - General 04/07/13
--- OUTSIDE RECORDS SUMMARY | 2023-10-12 09:39 | XMS_ITS | Encounter Summary ---
Author Organization [facility] [place] [address] Care Team Providers Care Welfare Supervisor Name Role Phone Kaitlynn Horner MD Primary Care Provider [phone] Encounter Details Date Type Department Care Team (Latest Contact Info) Description 07/24/2013 9:45 AM EDT Office Visit Psychiatry [place] [phone] Maynor Javier MD [facility] [place] [id number] ADHD (attention deficit hyperactivity disorder), combined type (Primary Dx) Social History Tobacco Use Types Packs/Day Years Used Date Smoking Tobacco: Never Assessed Sex and Gender Information Value Date Recorded Sex Assigned at Not on file Gender Identity Not on file Sexual Orientation Not on file documented as of this encounter Patient Instructions * Patient Instructions* Maynor Javier MD - 07/24/2013 11:15 AM EDT Special Instructions Provided to Betsy Howard: Call your doctor, your local mental health center, , or your local emergency room if you develop worsening symptoms of depression, anxiety, auditory/visual hallucinations, thoughts of harming yourself, thoughts of harming others or any other decline in your overall condition. Your Local [facility]: [facility] [phone] Medications have been reviewed with the patient and the patient understands the use and side effects of these medications. Do not drive if sedated by medications. Recommendations: ?? Strongly recommend individual psychotherapy, Dialectical Behavioral Therapy (DBT) is suggested ?? Strongly recommend family therapy to process interpersonal patterns and interactions ?? Continue Focalin XR and start adding Guanfacine 1 mg QHS (Depending on clinical response and tolerability, the daily dose may be adjusted in increments of no more than 1 mg/week up to a total daily dose of 4 mg/day PO) Follow up appointments (external or yet-to-be scheduled): With your primary care doctor Dr. Kaitlynn Horner Helpful websites for additional information: National Institutes of Mental Health (NIMH) http://www.nimh.nih.gov [employer] http://www.healthyminds.org/letstalkfacts.cfm National [place] [employer] Mental Illness www.gonzález.org or www.namivt.org or www.namin.org for local sites documented in this encounter Progress Notes * Maynor Javier MD - 07/24/2013 11:31 AM EDT DIAGNOSTIC INTERVIEW CPT CODE 87472/05688; MARGARITO 5100 Patient Name: Betsy Howard : 2000 Encounter Date: 07/24/2013 Time Spent: 90 minutes Primary Care Provider: KAITLYNN HORNER MD Referred by: Kaitlynn Horner MD Information Source: Child and parent interviews and rating scales, teacher rating scales, chart review Guardian: Sukumar and Vivianecuauhtemoc KamaraAnita Attendees: patient and her mother and father Identifying Information/Chief Complaint: This is a 13 y.o. female in grade 7th at [employer] who lives at [address] [place] [phone]. The patient's chief complaint is that History of Present Illness: 13 yo with past psychiatric history of ADHD, who presents for secondary opinion about medication and for diagnostic evaluation. Dr. Horner's referral also eludes to a question of bipolar disorder. Patient reports that she is not sure why she has come to this appointment and expresses disappointmentfor not being able to attend school because she was striving for a end of the year perfect attendance award. Parents are reserved and say that they just don't believe that their daughter is happy andacknowledge that this has been the case for many years. Parents report concern about depression, stealing and worry about anger issues (in particular toward family members) is concerning to them. They are unsure what to do next. Betsy denies depressed mood, she also denied sustained periods of elevated mood but endorses consistent irritability and annoyance toward specific persons (luz marinaily her sister Pattie) whom she feels is more loved and favored by her parents and whom she feels intentionally picked on and harassed by. She says they argue all the time, and that Pattie tries to control everything about her including who her friends should be and that their interactions toward one another are antagonistic. Parents report that the two girls have always had a adversarial relationship toward one another. Betsy is considered the one with anger problems though and in the past has seen a two different therapist(none in the past year), but no family therapy. Betsy endorses worry thoughts, agitation and restlessness in regards to her interpersonal relationships at home but she denies anxiety in school. She denies AVH, delusions and paranoia. Although there is some sleep initiation problems from time to time, she denies any sustained loss of sleep and never has gone days without sleep and when she does miss some sleep she is tired. Parents endorse some racing or grandiose thoughts but when described (i.e. Building a tree house) they do not seem out of scope of normal. Parents report that Betsy is defiant, lies, steels and is vengeful and that she also is externally focused and does not accept responsibility for a lot of her own negative behavi or. Betsy says that she has a lot of friends at school but none too close and never has had a bestfriend in her life time, she also denies having any play dates or outings with peers and no interest outside of playing video games on her phone or watching television. Betsy and her parents both deny any issues with weight or eating disorder or substance abuse. Growing up, Betsy was adopted from [place] at the age of 13 months, she was an average infant/toddler except that she was not as interested in physical contact with others, was described as head strong and stubborn and emotionally reactive (per parents). She had significant speech delay, reading difficulties and deficits in comprehension and thus IEP was established at school and services received including speech therapy (started in the 1st grade). IEP was formerly discontinued last year in the 6th grade and Betsy does no have significant academic problems at this time. In the 2nd grade, Betsy was started on Focalin for ADHD - symptoms were significant for hyperactivity, inattention, low focus and organization and difficulty with task completion. Focalin is reported to be very helpfulby the parents and not so much by Betsy but over the recent winter break when Betsy did not take Focalin for 3 weeks her teachers noted a decline in her abilities at school and since she has been back on the Focalin. Parents feels that on Focalin her mood is slightly more irritable but overall the benefit to them out way any negative. Both parent and child deny any past self harming behavior and deny any SI/HI and deny any past history of SI or plan/intent. Past Psychiatric History: ?? ADHD Past Medical History: ?? Not significant, as an infant had pneumonia but no hospitalization needed There is no known history of a structural heart problem or syncope. There is no known history of serious head injury or seizures. Family History: Notes about family history: biological history is completely unknown (adopted) There is no reported history of early in immediate family members, or known deaths at an early age that were cardiovascular in origin. Social Developmental History: This patient's was unknown. Other than speech and reading delay, early developmental milestones, walking, and toilet training were all reached within normal limits. The patient lives with mother and father and 17 year older sister Pattie her relationship with her parents and family is reportedly strained The relationship between her parents is reported to be good School performance: average Special accommodations are not received at school right now but had IEP from 1st to 6th grade The patient reports having friendships but none that are close and she has never had a best friend The patient reports no interest outside of school but does report she plays video games on her phone and watches TV. In school she is not active in sports or any extracurricular activities but science is her favorite subject Relevant trauma history: none known Mental Status Exam: This is a 13 y.o. female who appears her stated age. Activity level is slightly agitated, in particular directed toward parents and when talking about her older sister. There are no tics or articulation problems noted. Mood is okay. Affect is irritable. Sensorium is alert and oriented X 4. Intelligence not formally tested but appears normal, parent mentions some past testing revealed difficulty with reading and comprehension. Thought processes are goal directed, logical, and coherent with no looseness or associations or flight of ideas. The patient denies delusional or obsessive thoughts. Patient's insight is poor. There are no overt auditory or visual hallucinations observed. Denies suicidal or homicidal ideations. Impression: 13 yo F with past history of ADHD, on Focalin XR for many years with positive benefit for symptoms of inattention, organization and focus. However, family does question whether Focalin increase irritability but only slightly. Patient does have a long history of irritability and anger issues directed toward family members. She is highly reactive and externalizes the cause of any difficulties she may be experiencing. PHQ9 self report does not suggest depression and patient herself denies depressed mood but wonder if irritability is a symptoms of depression. Does not meet criteria for Bipolar Disorder nor Major Depressive criteria but she does for Dysthymia Disorder and family confirms years of symptoms. Also question whether she has Disruptive Mood Dysregulation Disorder as she meets criteria for this diagnosis as well. Personality style and disposition is suggestive of risk for future cluster B traits. Dialectical Behavior therapy might be helpful and strongly encourage family therapy.It is surprising that the family has not engaged in family therapy in the past and instead just hadJolene in individual therapy, strongly recommend family therapy. Complicated psychosocial stressorsof adoption history, low self worth and feeling that her sister is much more appreciated by her parents. No safety concerns, parents and patient consistently deny any current or past history of SI. Diagnosis: ADHD (primary), Dysthymia disorder Plan: ?? Strongly recommend family therapy (family given telephone number for [facility] and suggest following up PCP for information about local mental health therapist) ?? Also strongly recommend concurrent individual therapy, dialectical behavioral therapy ?? Medications: ?? Continue Focalin at current dose and add guanfacine 1mg QHS (increase by 1 mg weekly but do not exceed 4 mg and discuss further increase with PCP first) ?? Changes should be stepwise but after a sufficient period of the above change, if symptoms persist then may want to consider changing the stimulant to an amphetamine class (especially if Focalin isthought to increase irritability) or consider wellbutrin to target ADHD and depressive symptoms This patient was seen and discussed with Jessica Branham MD, supervising Child and Adolescent Psychiatrist * Jessica Branham MD - 07/24/2013 10:00 AM EDT I have seen the patient and reviewed Dr. Javier's above history and I agree with the details as written. The assessment and plan were formulated in discussion with me and I agree with them as documented. 13 yo adopted female, with ADHD referred by Kaitlynn Horner April 2013 for evaluation of behavioraland emotional issues. Concern re: RAD, BAD. Child presents as dysphoric and guarded, irritable. Loweye contact. Mildly agitated with discussion about adoption; curiosity about circumstances of earlylife. Features suggest possible depression. Temperament puts at risk for development of borderline personality disorder. Agree with plan to target residual ADHD and irritability by adding guanfacine to current Focalin XR. Monitor for more targetable mood disorder; encourage therapy for Betsy and family. 314.01 documented in this encounter Plan of Treatment Not on file documented as of this encounter Visit Diagnoses Diagnosis ADHD (attention deficit hyperactivity disorder), combined type- Primary Attention deficit disorder with hyperactivity documented in this encounter Care Teams Welfare Supervisor Relationship Specialty Start Date End Date Kaitlynn Horner MD [address] [place] [address] PCP - General 04/07/13 documented as of this encounter
[2023-10-12 09:40] VITALS: BP 95/62; PULSE 74; RESP 15; TEMP 37; O2SAT 98
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
[2023-10-12 11:06] VITALS: BP 95/62; PULSE 74; RESP 15; TEMP 37; O2SAT 98
[2023-10-12 11:24] VITALS: BP 104/52; PULSE 74; RESP 16; O2SAT 100
[2023-10-12] MEDS: Ketorolac 10 MG TAB PO (11:30)
[2023-10-12] MEDS: Acetaminophen 500 MG TAB 1000 MG PO (11:35)
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
[2023-10-12 12:28] VITALS: BP 102/66; PULSE 72; RESP 16
[2023-10-12] MEDS: Lidocaine 5% Patch 2 PATCH TP (12:48)
[2023-10-12] MEDS: Cyclobenzaprine 10 MG TAB, 3 TABS/BTL PO (12:49)
== END 2023-10-12 12:49 | disposition home or self-care (01) ==
PROVIDERS: Emergency Provider Physician Assistant; PCP Nurse Practitioner Family
DX: R42 Dizziness and giddiness (principal); R11.0 Nausea; M25.511 Pain in right shoulder; V47.5XXA Car driver injured in collision with fixed or stationary object in traffic accident, initial encounter
CPT/HCPCS: 71250; 81025; 99285; 70450; 72125; 72128; 72131; 99283

== ENCOUNTER 2023-10-27 07:09 | Emergency (ER) | payer MEDICAID, SELFPAY ==
[2023-10-27 07:13] VITALS: BP 112/77; PULSE 93; RESP 16; TEMP 35.8; O2SAT 98
--- OUTSIDE RECORDS SUMMARY | 2023-10-27 07:14 | XMS_ITS | Clinical Summary ---
Author Organization [facility] [place] [address] Care Team Providers Care Senior Procurement Specialist Name Role Phone Kaitlynn Horner MD Primary Care Provider Medications Medication Sig Dispensed Refills Start Date [...] ID Effective Dates Phone Address Type [facility] [id number] 2010-Present Care Teams Senior Procurement Specialist Relationship Specialty Start Date End Date Kaitlynn Horner MD [address] [place] [address] [place] [address] PCP - General 04/07/13
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
[2023-10-27 07:23] VITALS: PULSE 85; RESP 16; O2SAT 98
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
[2023-10-27] MEDS: Phenazopyridine 100 MG TAB PO (07:40)
[2023-10-27] MEDS: Acetaminophen 325 MG TAB 650 MG PO (07:40)
[2023-10-27 08:14] LABS: Bilirubin Negative (Negative); Blood Large (Negative); Clarity Sl Cloudy (Clear); Glucose Negative (Negative); Ketones Negative (Negative); Leukocyte Esterase Small (Negative); Nitrite Negative (Negative); Specific Gravity 1.025 (1.005-1.025); Urobilinogen 0.2 mg/dL (Up to 0.2)
[2023-10-27 08:21] LABS: Bacteria Rare HPF (Negative); C & S Indicated? Yes; Casts Negative LPF (Negative); Crystals Negative HPF (Negative); Epithelial Cells Rare HPF (Negative); Mucus Negative (Negative); RBC >50 HPF (0-2); WBC 20-50 HPF (0-5)
[2023-10-27] MEDS: Cefpodoxime 200 MG TAB PO (08:34)
--- NOTE | 2023-10-27 08:34 | NUR.NOTE ---
Faxed referral to [facility] for follow up to Pelvic Discomfort this week
[2023-10-27 08:40] VITALS: BP 117/90; PULSE 72; RESP 16; O2SAT 100
== END 2023-10-27 08:46 | disposition home or self-care (01) ==
PROVIDERS: Emergency Provider Emergency Medicine; PCP Nurse Practitioner Family
DX: N39.0 Urinary tract infection, site not specified (principal); F17.290 Nicotine dependence, other tobacco product, uncomplicated; F17.210 Nicotine dependence, cigarettes, uncomplicated
CPT/HCPCS: 87077; 99283; 81003; 81015; 87086; 87186

== ENCOUNTER 2023-11-10 10:35 | Emergency (ER) | payer MEDICAID, SELFPAY ==
[2023-11-10 10:38] VITALS: BP 123/83; PULSE 98; RESP 16; TEMP 36.6; O2SAT 100
--- OUTSIDE RECORDS SUMMARY | 2023-11-10 10:48 | XMS_ITS | Clinical Summary ---
Author Organization [facility] [place] [address] Care Team Providers Care Solder Cream Maker Name Role Phone Kaitlynn Horner MD Primary Care Provider [phone] Medications Medication Sig Dispensed Refills Start Date [...] ID Effective Dates Phone Address Type [facility] [id number] 2010-Present Care Teams Solder Cream Maker Relationship Specialty Start Date End Date Kaitlynn Horner MD [address] [place] [address] [place] [address] PCP - General 04/07/13
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
[2023-11-10 10:58] VITALS: RESP 16
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
[2023-11-10 12:42] LABS: *AMPHETAMINES SCREEN URINE Negative (Negative); *BARBITURATES SCREEN URINE Negative (Negative); *BENZODIAZEPINES SCREEN URINE Negative (Negative); Cannabinoids THC Positive (Negative); Cocaine Screen,Urine Negative (Negative); METHADONE URINE SCREEN Negative (Negative); OPIATES URINE SCREEN Negative (Negative); Tricyclic Antidepressants Negative (Negative)
== END 2023-11-10 13:20 | disposition home or self-care (01) ==
PROVIDERS: Emergency Provider Emergency Medicine; PCP Nurse Practitioner Family
DX: F32.A Depression, unspecified (principal); F41.9 Anxiety disorder, unspecified; Z91.198 Patient's noncompliance with other medical treatment and regimen for other reason; F17.210 Nicotine dependence, cigarettes, uncomplicated; F17.290 Nicotine dependence, other tobacco product, uncomplicated
CPT/HCPCS: 80307; 81025; 99284

== ENCOUNTER 2023-12-17 07:11 | Emergency (ER) | payer MEDICAID, SELFPAY ==
[2023-12-17 07:13] VITALS: BP 110/80; PULSE 80; RESP 16; TEMP 36.7
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
[2023-12-17] MEDS: Ketorolac 15 MG/ML VIAL IM (07:58)
[2023-12-17] MEDS: Acetaminophen 500 MG TAB 1000 MG PO (07:58)
[2023-12-17] MEDS: Lidocaine 5% Patch 1 PATCH TP (07:58)
[2023-12-17 08:06] LABS: Bilirubin Negative (Negative); Blood Trace-intact (Negative); Clarity Clear (Clear); Glucose Negative (Negative); Ketones Negative (Negative); Leukocyte Esterase Small (Negative); Nitrite Negative (Negative); Specific Gravity >= 1.030 (1.005-1.025); Urobilinogen 0.2 mg/dL (Up to 0.2)
[2023-12-17 08:15] LABS: Bacteria Few HPF (Negative); C & S Indicated? No/Sq. Contamination; Crystals Negative HPF (Negative); Epithelial Cells Many HPF (Negative); Mucus Negative (Negative)
[2023-12-17 08:55] VITALS: BP 110/80; PULSE 80; RESP 16; TEMP 36.7; O2SAT 99
== END 2023-12-17 08:56 | disposition home or self-care (01) ==
PROVIDERS: Emergency Provider Emergency Medicine; PCP Nurse Practitioner Family
DX: M25.531 Pain in right wrist (principal); M54.50 Low back pain, unspecified; F17.210 Nicotine dependence, cigarettes, uncomplicated; F17.290 Nicotine dependence, other tobacco product, uncomplicated
CPT/HCPCS: 81025; 96372; 99284; 81003; 81015; 99283; J1885

== ENCOUNTER 2023-12-28 09:58 | Emergency (ER) | payer MEDICAID, SELFPAY ==
[2023-12-28] VITALS (11 sets, daily range): BP systolic 101–115; BP diastolic 69–78; PULSE 72–94; RESP 12–24; TEMP 36.8; O2SAT 93–100
--- NOTE | 2023-12-28 10:00 | DI.RAD_ITS ---
Exam(s) XR CHEST 2V PA LATERAL EXAM: XR CHEST 2V PA LATERAL CLINICAL HISTORY: SOB, eval PNA TECHNIQUE: 2D digital imaging was performed of the chest. Two images were obtained. PA and lateral views were obtained. COMPARISON: CT CT CHEST WO from 10/12/2023 FINDINGS: MEDIASTINUM: Normal. HEART: Normal. PULMONARY VASCULATURE: Normal. LUNGS: Clear. PLEURAL SPACE: No pleural effusion or pneumothorax. BONE:Within normal limits for the patient's age. OTHER FINDINGS:Normal. IMPRESSION: No acute pulmonary findings. DATA REPOSITORY: RADIATION DOSE DELIVERED:
--- NOTE | 2023-12-28 10:00 | RT.EKG_ITS ---
APPROVED REPORT Exam: Resting ECG Reason for Exam: chest pain Patient Location: E HR:78 bpm ECG Measurements Heart Rate 78 AXIS GA 156 P 41 QRSd 83 QRS 39 QT 348 T 10 QTc 396 Conclusion Sinus rhythm, rate 78 No interval abnormalities Isolated Q wave and T-wave inversion lead III No STEMI
--- OUTSIDE RECORDS SUMMARY | 2023-12-28 10:18 | XMS_ITS | Clinical Summary ---
Author Organization [facility] [place] [address] Care Team Providers Care Casino Cage Cashier Name Role Phone Kaitlynn Horner MD Primary Care Provider [phone] Medications Medication Sig Dispensed Refills Start Date [...] vaccine (0-59 yrs) (1) 07/16/2019 Tdap adult (Retired) 07/16/2019 Tetanus vaccine (Retired) 07/16/2019 PAP Smear 2021 Covid-19 Vaccine ( - 2022-24 season) 2023 Influenza (Flu) vaccine (1 o f 1 - Influenza standard series) 12/01/2023 Insurance Payer Benefit Plan / Group Subscriber ID Effective Dates Phone Address Type [facility] [id number] 2010-Present Care Teams Casino Cage Cashier Relationship Specialty Start Date End Date Kaitlynn Horner MD [address] [place] [address] [place] [address] PCP - General 04/07/13
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
[2023-12-28] MEDS: Ketorolac 15 MG/ML VIAL IM (10:33)
[2023-12-28] MEDS: Acetaminophen 500 MG TAB 1000 MG PO (10:33)
[2023-12-28 11:21] LABS: COVID-19 PCR Negative (Negative); Influenza A PCR Negative (Negative); Influenza B PCR Negative (Negative); RSV PCR Negative (Negative)
[2023-12-28 11:26] LABS: Source Nasopharynx
--- NOTE | 2023-12-28 11:55 | DI.VRAD_ITS ---
PROCEDURE INFORMATION: Exam: XR Chest Exam date and time: 12/28/2023 11:32 AM Age: 23 years old Clinical indication: Other: SOB, eval pna TECHNIQUE: Imaging protocol: Radiologic exam of the chest. Views: 2 views. COMPARISON: CT CHEST WO 10/12/2023 11:38 AM FINDINGS: Lungs: Unremarkable. No consolidation. Pleural spaces: Unremarkable. No pleural effusion. No pneumothorax. Heart/Mediastinum: Unremarkable. No cardiomegaly. Bones/joints: Unremarkable. IMPRESSION: No acute findings. Dictated and Authenticated by: Mehreen Chowdhury MD. Ordering:YENNIFER Almaraz MD
== END 2023-12-28 12:14 | disposition home or self-care (01) ==
PROVIDERS: Emergency Provider Emergency Medicine; PCP Nurse Practitioner Family
DX: R06.02 Shortness of breath (principal); R07.9 Chest pain, unspecified; R42 Dizziness and giddiness
CPT/HCPCS: 81025; 87637; 93005; 93308; 96372; 99285; 71046; 93010; 99284; J1885

== ENCOUNTER 2024-02-24 17:37 | Emergency (ER) | payer MEDICAID, SELFPAY ==
[2024-02-24] VITALS (11 sets, daily range): BP systolic 103–120; BP diastolic 78–81; PULSE 77–92; RESP 5–31; TEMP 36.7–37.1; O2SAT 100
--- NOTE | 2024-02-24 17:30 | RT.EKG_ITS ---
APPROVED REPORT Exam: Resting ECG Reason for Exam: Seizure Patient Location: E HR:91 bpm ECG Measurements Heart Rate 91 AXIS WI 160 P 62 QRSd 83 QRS 51 QT 363 T 36 QTc 447 Conclusion Sinus rhythm...normal P axis, V-rate 60- 99 ST elevation, consider inferior injury...ST >0.08mV, II III aVF NSR Normal [place]/Interval No ST changes There are no significant changes compared to prior EKG performed on 12/28/2023 at 09:57.
--- OUTSIDE RECORDS SUMMARY | 2024-02-24 17:49 | XMS_ITS | Clinical Summary ---
Author Organization [facility] [place] [address] Care Team Providers Care Supervisor [employer] Name Role Phone Kaitlynn Horner MD Primary Care Provider [phone] Medications Medication Sig Dispensed Refills Start Date [...] Hepatitis B vaccine (0-59 yrs) (1) 07/16/2019 Tetanus/Diphtheria/Pertussis Vaccines (1 - Tdap) 07/15 PAP Smear 2021 Covid-19 Vaccine ( - 2023- season) 2023 Influenza (Flu) vaccine (1 o f 1 - Influenza standard series) 12/01/2023 Insurance Payer Benefit Plan / Group Subscriber ID Effective Dates Phone Address Type [facility] [id number] 2010-Present Care Teams Supervisor [employer] Relationship Specialty Start Date End Date Kaitlynn Horner MD [address] [place] [address] [place] [address] PCP - General 04/07/13
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
[2024-02-24 18:24] LABS: Abs Immature Grans 0.02 10^3/uL (0.0-0.06); HCT 35.4 % (36.0-46.0); HGB 11.9 g/dL (11.2-15.7); MCH 30.6 pg (27.0-33.0); MCHC 33.6 % (32.0-36.0); MCV 91 fL (80-95); MPV 10.7 fL (8.0-11.0); Platelet Count 302 10^3/uL (130-400); RBC 3.89 10^6/uL (3.93-5.22); RDW 12.8 % (11.7-14.6); RDW-SD 42.3 fL
[2024-02-24] MEDS: Albuterol/Ipratropium 3 ML UPD VIAL UPD (18:28)
[2024-02-24] MEDS: Normal Saline 1,000 ML 1000 ML IV (18:30)
[2024-02-24 18:42] LABS: Absolute Lymphocyte Count 4.14 10^3/uL (1.2-3.4); Absolute Neutrophil Count 5.56 10^3/uL (1.2-6.7); Diff Comment Manual Differential; RBC Morphology Normal
--- NOTE | 2024-02-24 18:45 | DI.RAD_ITS ---
Exam(s) XR CHEST 2V PA LATERAL EXAM: XR CHEST 2V PA LATERAL CLINICAL HISTORY: cough, SOB TECHNIQUE: 2D digital imaging was performed of the chest. Two images were obtained. PA and lateral views were obtained. COMPARISON: CR,XR XR CHEST 2V PA LATERAL from 12/28/2023 FINDINGS: MEDIASTINUM: Normal. HEART: Normal. PULMONARY VASCULATURE: Normal. LUNGS: There is a new infiltrate in the left upper lobe. The right lung appears clear. PLEURAL SPACE: No pleural effusion or pneumothorax. BONE:Within normal limits for the patient's age. OTHER FINDINGS:Normal. IMPRESSION: Left upper lobe pneumonia. DATA REPOSITORY: RADIATION DOSE DELIVERED:
[2024-02-24 18:48] LABS: HCG Qual (Serum) Negative
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
[2024-02-24 18:56] LABS: ALT 19 U/L (14-59); AST 23 U/L (15-37); Albumin 3.6 g/dL (3.4-5.0); Alkaline Phosphatase 72 U/L (46-116); BUN 8 mg/dL (7-18); CREATININE 0.6 mg/dL (0.55-1.02); Chloride 107 mmol/L (98-107); Estimated GFR 129.27 (mL/min/1.73m2); Glucose 101 mg/dL (74-106); Magnesium 2.1 mg/dL (1.8-2.4); Potassium 3.4 mmol/L (3.5-5.1); Sodium 142 mmol/L (136-145); TSH (W/Ref FT4) 0.48 uIU/mL (0.36-3.74); Total Protein 7.9 g/dL (6.4-8.2)
[2024-02-24 19:02] LABS: COVID-19 PCR Negative (Negative); Influenza A PCR Negative (Negative); Influenza B PCR Negative (Negative); RSV PCR Negative (Negative)
[2024-02-24 19:03] LABS: Source NASOPHARYNX
--- NOTE | 2024-02-24 20:15 | DI.VRAD_ITS ---
PROCEDURE INFORMATION: Exam: XR Chest Exam date and time: 02/24/2024 7:28 PM Age: 23 years old Clinical indication: Cough and shortness of breath; Patient HX: Cough, SOB TECHNIQUE: Imaging protocol: Radiologic exam of the chest. Views: 2 views. COMPARISON: CR XR CHEST 2V PA LATERAL 12/28/2023 11:32 AM FINDINGS: Lungs: Consolidation in the left upper lobe consistent with pneumonia. Pleural spaces: Unremarkable. No pleural effusion. No pneumothorax. Heart/Mediastinum: Unremarkable. No cardiomegaly. Bones/joints: Unremarkable. IMPRESSION: Consolidation in the left upper lobe consistent with pneumonia. Dictated and Authenticated by: Brody Clayton MD. Ordering:KRISTI Soliman MD
[2024-02-24] MEDS: Cefpodoxime 200 MG TAB PO (20:29)
[2024-02-24] MEDS: Albuterol HFA 8 GM 60 PUFF INH IH (20:29)
[2024-02-24] MEDS: Azithromycin 250 MG TAB 500 MG PO (20:29)
== END 2024-02-24 20:47 | disposition home or self-care (01) ==
PROVIDERS: Emergency Provider Emergency Medicine; PCP Nurse Practitioner Family
DX: J18.9 Pneumonia, unspecified organism (principal); R55 Syncope and collapse
CPT/HCPCS: 80053; 87637; 93005; 94640; 96360; 99285; 71046; 83735; 84443; 84703; 85025; 93010; 99284; J7620

== ENCOUNTER 2024-06-11 02:32 | Outpatient (CLI) | payer MEDICAID, SELFPAY ==
[2024-06-11 11:30] LABS: *AMPHETAMINES SCREEN URINE Negative (Negative); *BARBITURATES SCREEN URINE Negative (Negative); *BENZODIAZEPINES SCREEN URINE Negative (Negative); Cannabinoids THC Negative (Negative); Cocaine Screen,Urine Negative (Negative); METHADONE URINE SCREEN Negative (Negative); OPIATES URINE SCREEN Negative (Negative); Tricyclic Antidepressants Negative (Negative)
[2024-06-11 11:30] LABS: VALPROIC ACID 15.2 ug/mL
[2024-06-11 11:37] LABS: HCG Qual (Urine) Negative
[2024-06-11 11:51] LABS: ALT 15 U/L (14-59); AST 16 U/L (15-37); Albumin 3.4 g/dL (3.4-5.0); Alkaline Phosphatase 61 U/L (46-116); Anion Gap 10.7 mmol/L (3-11); BUN 16 mg/dL (7-18); Bilirubin, Total 0.4 mg/dL (0.2-1.0); CO2 23.3 mmol/L (21.0-32.0); CREATININE 0.6 mg/dL (0.55-1.02); Calcium 8.7 mg/dL (8.5-10.1); Chloride 108 mmol/L (98-107); Estimated GFR 129.27 (mL/min/1.73m2); Glucose 110 mg/dL (74-106); Potassium 4.2 mmol/L (3.5-5.1); Sodium 142 mmol/L (136-145); Total Protein 7.2 g/dL (6.4-8.2); Vitamin D 25 Total 19 ng/mL (30-100)
== END 2024-06-11 02:33 | disposition home or self-care (01) ==
PROVIDERS: PCP Nurse Practitioner Family; Visit Provider Registered Nurse
DX: F25.0 Schizoaffective disorder, bipolar type (principal); F43.12 Post-traumatic stress disorder, chronic; F41.9 Anxiety disorder, unspecified; F60.3 Borderline personality disorder
CPT/HCPCS: 36415; 80053; 80307; 82306; 80164; 81025

== ENCOUNTER 2024-07-08 21:32 | Outpatient (REF) | payer MEDICAID, SELFPAY ==
[2024-07-10 11:08] LABS: Chlamydia Result Negative (Negative); GC Result Negative (Negative)
== END 2024-07-08 21:33 | disposition home or self-care (01) ==
LOC: LBN 21:32
PROVIDERS: PCP Nurse Practitioner Family; Visit Provider Nurse Practitioner Family
DX: N76.0 Acute vaginitis (principal); Z11.3 Encounter for screening for infections with a predominantly sexual mode of transmission
CPT/HCPCS: 87491; 87591; 87480; 87510; 87660

== ENCOUNTER 2024-07-30 11:27 | Outpatient (CLI) | payer MEDICAID, SELFPAY | END 2024-07-30 11:28 | disposition home or self-care (01) | LOC: LBO 11:28 | PROVIDERS: PCP Nurse Practitioner Family; Visit Provider Registered Nurse | DX: F25.0 Schizoaffective disorder, bipolar type (principal); F43.12 Post-traumatic stress disorder, chronic; F41.9 Anxiety disorder, unspecified; F60.3 Borderline personality disorder; Z51.81 Encounter for therapeutic drug level monitoring | CPT/HCPCS: 36415; 80164 ==

== ENCOUNTER 2024-08-25 11:05 | Observation (INO) | payer MEDICAID, SELFPAY ==
[2024-08-25] VITALS (52 sets, daily range): BP systolic 78–120; BP diastolic 39–87; PULSE 54–87; RESP 11–23; TEMP 35.9–36.7; O2SAT 96–100; BMI 27.1
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
--- NOTE | 2024-08-25 11:30 | DI.CT_ITS ---
Exam(s) CT ABDOMEN PELVIS W EXAM: CT ABDOMEN PELVIS W CLINICAL HISTORY: Right lower quadrant tenderness. TECHNIQUE: Imaging Protocol: Axial computed tomography images with coronal and sagittal reformatted images were created and reviewed CONTRAST MATERIAL: Intravenous: Omnipaque-350 75cc Oral: None COMPARISON: CT CT BRAIN NECK CTA from 08/18/2023 FINDINGS: VISUALIZED LUNG BASES: No nodules nor pleural effusions evident. ABDOMEN: There is no ascites. LIVER: There are no focal hepatic lesions evident. No dilated intrahepatic ducts. GALLBLADDER/BILIARY: No obvious gallbladder pathology. CBD is not dilated. PANCREAS: No evidence of pancreatic mass nor dilatation of the pancreatic duct. SPLEEN: Spleen is not enlarged. No obvious intrasplenic lesions. Splenic and portal veins are paten t. ADRENALS: There are no significant adrenal masses. KIDNEYS:No cysts evident. No solid renal masses. No calculi nor hydronephrosis.. ABDOMINAL AORTA: Abdominal aorta is not enlarged. LYMPH NODES:There is no retroperitoneal nor paraaortic adenopathy. ABDOMINAL WALL: No evidence of significant anterior abdominal wall nor inguinal hernia. GI: There is no evidence of bowel obstruction, free air, nor abscess. PELVIS: GI: Appendix diameter is 5-6 mm. It contains some calcified intraluminal material and appears slight ly straightened. There is no periappendiceal streakingno evidence of sigmoid diverticulitis. LYMPH NODES: There is no intrapelvic nor inguinal adenopathy. REPRODUCTIVE: Uterus appears age-appropriate. Left adnexa unremarkable. There is a cyst in the righ t ovary which measures 1.6 x 1.2 cm. There is small amount of fluid in the cul-de-sac. URINARY BLADDER: No calculi nor obvious masses evident OSSEOUS: No fractures and no significant osseous lesions. Degenerative disc disease at L5-S1 level noted. IMPRESSION: 1. The appendix measures 5-6 mm and appears slightly straightened. However, there is no periappendic eal streaking. Correlation with clinical findings recommended. Cannot exclude very early appendicit is. 2. There is a small cyst in the right ovary measuring 16 x 12 mm. There is also small amount of flui d in the cul-de-sac. No left adnexal findings. 3. No significant findings in the upper abdomen. Report called by myself to ER provider 08/25/2024 at 2:35 p.m. RADIATION DOSE DELIVERED: 330.26mGy.cm Total DLP DATA REPOSITORY: All CT scans at this facility are submitted to the National Radiology Data Registry (NRDR) Dose Index Registry (DIR) with the [employer] (A[employer]). RADIATION OPTIMIZATION: All CT scans at this facility use at least one of these dose optimization te chniques: automated exposure control; mA and/or kV adjustment per patient size (includes targeted exa ms where dose is matched to clinical indication); or iterative reconstruction.
[2024-08-25] MEDS: ACETAMINOPHEN 1,000 MG/100 ML BTL 400 MG IVPB (12:05)
[2024-08-25 12:06] LABS: Abs Immature Grans 0.02 10^3/uL (0.0-0.06); Absolute Basophil Count 0.01 10^3/uL (0.0-0.2); Absolute Eosinophil Count 0.08 10^3/uL (0.0-0.7); Absolute Lymphocyte Count 3.43 10^3/uL (1.2-3.4); Absolute Monocyte Count 0.56 10^3/uL (0.1-0.8); Basophils % 0.1 %; HCT 36.1 % (36.0-46.0); HGB 11.7 g/dL (11.2-15.7); Immature Grans % 0.2 %; Lymphocytes % 42.3 %; MCH 30.4 pg (27.0-33.0); MCHC 32.4 % (32.0-36.0); MCV 94 fL (80-95); MPV 10.8 fL (8.0-11.0); Monocytes % 6.9 %; Neutrophils % 49.5 %; Platelet Count 261 10^3/uL (130-400); RBC 3.85 10^6/uL (3.93-5.22); RDW 14.2 % (11.7-14.6); RDW-SD 48.1 fL
[2024-08-25] MEDS: Ondansetron 4 MG/2 ML VIAL IVP (12:06)
[2024-08-25] MEDS: Normal Saline 500 ML 1000 ML IV (12:07)
[2024-08-25 12:41] LABS: ALT 19 U/L (14-59); AST 23 U/L (15-37); Albumin 3.6 g/dL (3.4-5.0); Alkaline Phosphatase 64 U/L (46-116); Anion Gap 6.3 mmol/L (3-11); BUN 16 mg/dL (7-18); Bilirubin, Total 0.3 mg/dL (0.2-1.0); CO2 27.7 mmol/L (21.0-32.0); CREATININE 0.6 mg/dL (0.55-1.02); Calcium 8.9 mg/dL (8.5-10.1); Chloride 106 mmol/L (98-107); Estimated GFR 128.46 (mL/min/1.73m2); Glucose 81 mg/dL (74-106); Potassium 4.2 mmol/L (3.5-5.1); Sodium 140 mmol/L (136-145); Total Protein 7.3 g/dL (6.4-8.2)
[2024-08-25 13:35] LABS: HCG Qual (Serum) Negative
[2024-08-25] MEDS: Normal Saline - Diluent 50 ML VIAL IJ (13:43)
[2024-08-25] MEDS: Omnipaque 350 MG/ML 100 ML BTL IJ (13:44)
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
[2024-08-25] MEDS: PIPERACILLIN/TAZO 3.375 GM in Normal Saline 50 ML IVPB (15:35)
[2024-08-25] MEDS: Ketorolac 15 MG/ML VIAL IVP (15:36)
[2024-08-25] MEDS: Normal Saline 1,000 ML 100 ML IV (15:55)
[2024-08-25] MEDS: Bupivacaine 0.25% Pres-Free W/EPI 30 ML VIAL (16:51)
--- NOTE | 2024-08-25 16:51 | APP_PTH ---
PATIENT: Betsy Howard LOC: U#:[id number] AGE/SX: 24/F ROOM: 208 RE08/25/[address]: Efrain Paez MD : 2000 BED: A DIS: 08/26/2024 SPEC #: [id number] RECD: 08/25/24 17:45 STATUS: SOUAnne REQ #: [id number] MAYITO: 08/25/24 16:[address]: Efrain Paez DEPT: Surgical Specimen RECD BY: Mireille Sanchez ENTERED: 08/25/24 17:45 SP TYPE: Appendix OTHR DR: Pily Bain Tissues: 1 - APPENDIX NOT INCIDENTAL Procedures: GROSS AND MICRO LEVEL 3 Comments: [id number]
--- NOTE | 2024-08-25 17:19 | ROE_ITS ---
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 Although her labs and vital signs were normal and reassuring in the ER, she did undergo a CT scan which suggested early acute appendicitis. Findings: Relatively uninflamed appendix; no evidence of Meckel's diverticulitis; normal- appearing right and left ovaries Procedure Description: I met with Betsy in the preoperative area, and we reviewed again the plan for laparoscopic appendectomy. I explained the risks and the benefits once again, and she had the chance to ask any other questions. Next, we moved back to the operating room. She was assisted onto the OR table. General endotracheal anesthesia was initiated, and she was positioned appropriately with the left arm gently tucked, taking great care to ensure appropriate padding and support. Next, the anterior abdominal wall was prepped and draped. I made a small incision above the umbilicus after anesthetizing the skin. Using a 5 mm optical viewing port, I entered the peritoneal cavity under direct vision and establish pneumoperitoneum. Another 5 mm port was then placed in the left mid abdomen with the assistance of the laparoscope, and a 12 mm port was placed in the suprapubic position. Priscila was then placed in the Trendelenburg position, with the left side slightly down. I retracted the greater omentum up off of the underlying viscera. The cecum was easily identified, and this was traced back along the tenia to the base of the appendix. The appendix itself did not appear acutely inflamed. It was quite straight as described on the CT scan. The tip of it may be just a little bit thickened, but overall, I would say that this is not exactly convincing acute appendicitis. At that point, I performed a limited exam of the right lower quadrant and pelvis. Using a hand overhand technique, I examined the distal ileum. There was no Meckel's diverticulum. The bowel wall itself looked healthy and normal, although there did appear to be a modest amount of succus within the small bowel, that I suppose could be consistent with some simple enteritis. With the small bowel reflected up out of the pelvis, I examined the uterus and ovaries. These appeared normal. There was certainly no ovarian torsion, or any signs of tubo-ovarian abscess. With no other pathology that would explain her right lower quadrant pain, I decided to continue with laparoscopic appendectomy. The mesoappendix was divided with sequential fires of the LigaSure device, and the base of the appendix was then divided from the cecum with an Endo ANN stapler. The appendix was placed in an Endo Catch bag and removed by way of the suprapubic port. A Jose-Abiola wound closure device was advanced and through this port site, and the midline fascia of the suprapubic port was reapproximated with interrupted Vicryl sutures. The staple line was examined. It appeared hemostatic and healthy. I remove the 5 mm port in the left mid abdomen, and then evacuated all of the insufflated gas prior to removing the umbilical port. Skin and subcutaneous tissues were reapproximated, and bandages were applied before the patient was extubated and transferred over to the recovery unit Date of Procedure: 08/25/24
[2024-08-25] MEDS: LORazepam 20 MG/10 ML VIAL IVP (17:26)
--- NOTE | 2024-08-25 17:27 | W.ANESPOSTOP ---
Postoperative Evaluation Date, Time and Location Date Performed: 08/25/24 Time Performed: 17:27 Patient Location: PACU Vital Signs Most Recent Imported Vital Signs: Most Recent Vital Signs Temp Pulse Resp BP Pulse Ox 36.6 C 72 13 118/85 98 08/25/24 16:05 08/25/24 16:05 08/25/24 16:05 08/25/24 16:05 08/25/24 16:05 Pain Score Most Recent Pain Score: Most Recent Pain Score Pain Level 7 08/25/24 16:05 Assessment Mental Status: Arousable with meaningful communication Airway and Respiratory Function: Patent airway with normal (patient baseline) respiratory exam Cardiovascular Function: Hemodynamically Stable Hydration Status: Adequately Hydrated Nausea & Vomiting: No Nausea or Vomiting Pain: Pain is Moderate or Severe Postoperative Pain Management: Pain being addressed with medication and Ongoing pain, patient will be managed as an inpatient Peripheral Nerve Block: Patient did not receive a nerve block
[2024-08-25] MEDS: fentaNYL 100 MCG/2 ML VIAL IVP (17:40)
[2024-08-25] MEDS: Droperidol 5 MG/2 ML VIAL 0.625 MG IVP (17:50)
[2024-08-25] MEDS: ACETAMINOPHEN 1,000 MG/100 ML BAG 400 MG IVPB (17:53)
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
[2024-08-25] MEDS: Acetaminophen 500 MG TAB 1000 MG PO (20:08)
[2024-08-25] MEDS: Normal Saline Flush 10 ML SYR IVP (20:09)
[2024-08-25] MEDS: Enoxaparin 40 MG/0.4 ML SYR SC (20:10)
[2024-08-26] MEDS: Acetaminophen 500 MG TAB 1000 MG PO (01:37)
[2024-08-26 07:17] VITALS: BP 103/65; PULSE 74; RESP 12; TEMP 36.8; O2SAT 100
[2024-08-26] MEDS: Psyllium PKT 1 EACH PO (09:08)
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
--- NOTE | 2024-08-26 11:10 | PDOC.CMPRO ---
Date of service: 08/26/24 Time of Service: 11:15 Care Management Progress Note Progress Note Text Progress Note Text: Betsy is s/p lap appy early this morning. She was discharged home today with no new services, before CM could meet with her. She was given very good instructions from the surgeon, and will f/u with her PCP on 09/11/24. Social Determinants of Health Screening Will the Patient Participate in the Screening?: Unable to obtain
== END 2024-08-26 11:10 | disposition home or self-care (01) ==
LOC: ER 15:18 → DSU 15:56 → MS 18:30
PROVIDERS: Admitting Provider Surgery; Emergency Provider Emergency Medicine; PCP Nurse Practitioner Family; Visit Provider Surgery
PROC: 0DTJ4ZZ Resection of Appendix, Percutaneous Endoscopic Approach (ICD-10-PCS; CPT 44970; principal; 2024-08-25 16:05)
DX: R10.31 Right lower quadrant pain (principal); K52.9 Noninfective gastroenteritis and colitis, unspecified; J30.9 Allergic rhinitis, unspecified; F41.9 Anxiety disorder, unspecified; F90.9 Attention-deficit hyperactivity disorder, unspecified type; F32.4 Major depressive disorder, single episode, in partial remission; F60.3 Borderline personality disorder; F34.81 Disruptive mood dysregulation disorder; F88 Other disorders of psychological development
CPT/HCPCS: 44970; 80053; 96361; 96365; 96372; 96375; 99285; J1650; 74177; 84703; 85025; 88304; G0378; J0131; J1100; J1790; J1885; J2003; J2060; J2250; J2405; J2543; J2704; J3010; J3490

== ENCOUNTER 2024-08-27 15:49 | Emergency (ER) | payer MEDICAID, SELFPAY ==
[2024-08-27 15:52] VITALS: BP 107/71; PULSE 81; RESP 20; TEMP 36.6; O2SAT 98
[2024-08-27 15:56] VITALS: BP 107/71; PULSE 81; RESP 20; TEMP 36.6; O2SAT 98
--- NOTE | 2024-08-27 16:15 | DI.CT_ITS ---
Exam(s) CT CHEST PE ABD PELVIS W EXAM: CT CHEST PE ABD PELVIS W CLINICAL HISTORY: SOB post-op, severe pain post-op to ABD. TECHNIQUE: Imaging Protocol: Axial CT angiography was performed with multi-slice acquisition and m ulti-planar and/or 3D reconstructions. CONTRAST MATERIAL: Intravenous: Omnipaque 350 Contrast volume:100 ml Oral: None COMPARISON: CT CT ABDOMEN PELVIS W from 08/25/2024 FINDINGS: CHEST: PULMONARY ARTERIES: There are no intra-arterial filling defects to suggest the presence of acute pulm onary emboli. LUNGS: There is no evidence of pulmonary infarction.No confluent infiltrates there are no pleural eff usions. MEDIASTINUM: There is no hilar nor mediastinal adenopathy. Visualized thyroid unremarkable. CARDIAC: Heart size is normal. There is no pericardial effusion. There is no significant shift of t he interventricular septum.Caliber of the thoracic aorta is within normal limits. No evidence of dis section. OSSEOUS: No significant osseous lesions.. ABDOMEN: There is no ascites. LIVER: There are no focal hepatic lesions nor dilatation of intrahepatic ducts. GALLBLADDER/BILIARY: No obvious gallbladder pathology. CBD is not dilated. PANCREAS: No evidence of pancreatic mass nor dilatation of the pancreatic duct. SPLEEN: Spleen is not enlarged. There are no intrasplenic lesions. Splenic and portal veins are julien nt. ADRENALS: There are no significant adrenal masses. KIDNEYS:No cysts evident. No calculi nor hydronephrosis. No solid renal masses. ABDOMINAL AORTA: Abdominal aorta is not enlarged. LYMPH NODES: There is no retroperitoneal or para-aortic adenopathy. ABDOMINAL WALL/GI: No evidence of significant anterior abdominal wall hernia. No bowel obstruction. There appears to have been interval appendectomy when compared to 08/25/2024 CT scan. PELVIS: LYMPH NODES: There is no intrapelvic nor inguinal adenopathy. GI: Interval appendectomy.There is some fluid in the right adnexa and cul-de-sac region. URINARY BLADDER: No calculi nor masses evident REPRODUCTIVE: Uterus size normal. Small cyst in the right ovary again noted. Some fluid in the cul- de-sac now evident. OSSEOUS: No significant osseous lesions. No fractures. IMPRESSION: 1. No evidence of acute pulmonary emboli nor pulmonary infarction. 2. There are no pleural effusions. 3. There has been interval appendectomy when compared to images of CT scan performed 2 days ago. 4. There is a small amount of fluid in the pelvis and cul-de-sac and right adnexa now evident. This may be related to the surgery/appendix findings or female physiologic. Close follow-up recommended. Discussed by phone with ER provider 08/27/2024 at 6:30 p.m. RADIATION DOSE DELIVERED: 464.09mGy.cm Total DLP DATA REPOSITORY: All CT scans at this facility are submitted to the National Radiology Data Registry (NRDR) Dose Index Registry (DIR) with the [employer] ([employer]). RADIATION OPTIMIZATION: All CT scans at this facility use at least one of these dose optimization te chniques: automated exposure control; mA and/or kV adjustment per patient size (includes targeted exa ms where dose is matched to clinical indication); or iterative reconstruction.
[2024-08-27 17:11] LABS: Abs Immature Grans 0.03 10^3/uL (0.0-0.06); Absolute Basophil Count 0.02 10^3/uL (0.0-0.2); Absolute Eosinophil Count 0.04 10^3/uL (0.0-0.7); Absolute Lymphocyte Count 3.64 10^3/uL (1.2-3.4); Absolute Monocyte Count 0.58 10^3/uL (0.1-0.8); Absolute Neutrophil Count 4.04 10^3/uL (1.2-6.7); Basophils % 0.2 %; Eosinophils % 0.5 %; HCT 34.1 % (36.0-46.0); HGB 11.3 g/dL (11.2-15.7); Immature Grans % 0.4 %; Lactate 1.5 mmol/L (<or=2.0); Lymphocytes % 43.6 %; MCH 30.7 pg (27.0-33.0); MCHC 33.1 % (32.0-36.0); MCV 93 fL (80-95); MPV 10.9 fL (8.0-11.0); Monocytes % 6.9 %; Neutrophils % 48.4 %; Platelet Count 261 10^3/uL (130-400); RBC 3.68 10^6/uL (3.93-5.22); RDW 14.1 % (11.7-14.6); RDW-SD 48.4 fL; WBC 8.35 10^3/uL (4.4-10.8)
[2024-08-27] MEDS: HYDROmorphone 2 MG/ML SYR 1 MG IVP (17:13)
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
[2024-08-27 17:25] LABS: Bilirubin Negative (Negative); Blood Negative (Negative); Clarity Clear (Clear); Glucose Negative (Negative); Ketones 15 mg/dL (Negative); Leukocyte Esterase Negative (Negative); Nitrite Negative (Negative); pH 7.5 (5-8)
[2024-08-27] MEDS: Normal Saline 1,000 ML 1000 ML IV (17:26)
[2024-08-27 17:28] VITALS: BP 89/47; PULSE 72; RESP 16; O2SAT 100
[2024-08-27 17:32] LABS: ALT 18 U/L (14-59); AST 20 U/L (15-37); Albumin 3.5 g/dL (3.4-5.0); Alkaline Phosphatase 55 U/L (46-116); Anion Gap 8.9 mmol/L (3-11); BUN 13 mg/dL (7-18); Bilirubin, Total 0.3 mg/dL (0.2-1.0); CO2 26.1 mmol/L (21.0-32.0); CREATININE 0.6 mg/dL (0.55-1.02); Calcium 8.9 mg/dL (8.5-10.1); Chloride 105 mmol/L (98-107); Estimated GFR 128.46 (mL/min/1.73m2); Glucose 86 mg/dL (74-106); Lipase 22 U/L (<78); Potassium 3.3 mmol/L (3.5-5.1); Sodium 140 mmol/L (136-145); Total Protein 7.3 g/dL (6.4-8.2)
[2024-08-27 17:33] LABS: Troponin I < 4 ng/L (<or=51)
[2024-08-27 17:45] LABS: Procalcitonin < 0.10 ng/mL
[2024-08-27] MEDS: Omnipaque 350 MG/ML 100 ML BTL IJ (17:56)
[2024-08-27] MEDS: Normal Saline - Diluent 50 ML VIAL IJ (17:57)
[2024-08-27] MEDS: Potassium Chloride 20 MEQ TABCR 40 MEQ PO (19:08)
[2024-08-27 19:38] VITALS: BP 117/96; PULSE 63; RESP 18; O2SAT 98
== END 2024-08-27 19:39 | disposition home or self-care (01) ==
PROVIDERS: Emergency Provider Physician Assistant; PCP Nurse Practitioner Family
DX: G89.18 Other acute postprocedural pain (principal); R10.31 Right lower quadrant pain; E87.6 Hypokalemia
CPT/HCPCS: 36415; 71275; 74177; 80053; 83690; 84145; 87040; 96361; 96374; 99285; 81003; 83605; 84484; 85025; J1171; J3490

== ENCOUNTER 2024-12-16 13:32 | Outpatient (CLI) | payer MEDICAID, SELFPAY | END 2024-12-16 13:33 | disposition home or self-care (01) | LOC: LBO 01-29 13:32 | PROVIDERS: PCP Nurse Practitioner Family; Visit Provider Registered Nurse | DX: F25.0 Schizoaffective disorder, bipolar type (principal); F43.12 Post-traumatic stress disorder, chronic; F41.9 Anxiety disorder, unspecified; F60.3 Borderline personality disorder; Z51.81 Encounter for therapeutic drug level monitoring | CPT/HCPCS: 36415; 80164 ==

== ENCOUNTER 2025-01-03 10:01 | Emergency (ER) | payer MEDICAID, SELFPAY ==
[2025-01-03 10:11] VITALS: BP 104/72; PULSE 94; RESP 18; TEMP 36.7; O2SAT 98
[2025-01-03 10:38] VITALS: BP 104/72; PULSE 94; RESP 18; TEMP 36.7; O2SAT 98
[2025-01-03 10:45] LABS: Glucose Negative (Negative)
[2025-01-03 10:57] LABS: RBC >50 HPF (0-2)
[2025-01-03 10:58] LABS: C & S Indicated? Yes
--- NOTE | 2025-01-03 11:00 | RT.EKG_ITS ---
APPROVED REPORT Exam: Resting ECG Reason for Exam: lightheaded Patient Location: E HR:86 bpm ECG Measurements Heart Rate 86 AXIS WA 153 P 48 QRSd 77 QRS 31 QT 351 T 31 QTc 420 Conclusion Sinus rhythm...normal P axis, V-rate 60- 99
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
--- NOTE | 2025-01-03 11:15 | DI.CT_ITS ---
Exam(s) CT ABDOMEN PELVIS WO/W EXAM: CT ABDOMEN PELVIS WO/W CLINICAL HISTORY: urogram, eval hematuria. TECHNIQUE: Imaging Protocol: Axial computed tomography images with coronal and sagittal reformatted images were created and reviewed CONTRAST MATERIAL: Intravenous: Omnipaque-350 75cc Oral: None COMPARISON: CT CT CHEST PE ABD PELVIS W from 08/27/2024 FINDINGS: VISUALIZED LUNG BASES: No nodules nor pleural effusions evident. ABDOMEN: There is no ascites. LIVER: There are no focal hepatic lesions evident. No dilated intrahepatic ducts. GALLBLADDER/BILIARY: No obvious gallbladder pathology. CBD is not dilated. PANCREAS: No evidence of pancreatic mass nor dilatation of the pancreatic duct. SPLEEN: Spleen is not enlarged. No obvious intrasplenic lesions. Splenic and portal veins are patent. ADRENALS: There are no significant adrenal masses. KIDNEYS:No cysts evident. No solid renal masses. Symmetrical nephrograms. No calculi nor hydronephrosis.. No filling defects within the infundibulum and renal pelves. Solitary ureter on each side which are not dilated the left ureter is opacified throughout its length and the left ureterovesical jet is identified. The right ureter is not dilated but only opacified in the abdomen and not within the pelvis of questionable significance. ABDOMINAL AORTA: Abdominal aorta is not enlarged. LYMPH NODES:There is no retroperitoneal nor paraaortic adenopathy. ABDOMINAL WALL: No evidence of significant anterior abdominal wall nor inguinal hernia. GI: There is no evidence of bowel obstruction, free air, nor abscess. PELVIS: GI: Appendix is surgically absent.No evidence of sigmoid diverticulitis. LYMPH NODES: There is no intrapelvic nor inguinal adenopathy. REPRODUCTIVE: Uterus and adnexal regions appear age-appropriate. There is no free fluid in the pelvis, as was previously evident on CT scan of July 2024. URINARY BLADDER: There is relative uniform thickening of the urinary bladder wall noted. There are no calculi at the ureterovesical junctions and the pelvic ureters are not dilated. OSSEOUS: No fractures and no significant osseous lesions. IMPRESSION: 1. Normal-appearing kidneys. Nondilated ureters. Only part of the right ureter is opacified. This is possibly related to peristalsis. 2. There is slight uniform thickening of the urinary bladder wall. No distinct mass. No rib calculi evident in the bladder lumen. 3. Appendix is surgically absent. There is no evidence of bowel obstruction, free air, nor abscess. Preliminary virtual Radiology report was reviewed. RADIATION DOSE DELIVERED: 1,743.55mGy.cm Total DLP DATA REPOSITORY: All CT scans at this facility are submitted to the National Radiology Data Registry (NRDR) Dose Index Registry (DIR) with the [employer] (ACR). RADIATION OPTIMIZATION: All CT scans at this facility use at least one of these dose optimization techniques: automated exposure control; mA and/or kV adjustment per patient size (includes targeted exams where dose is matched to clinical indication); or iterative reconstruction.
[2025-01-03 11:20] LABS: Abs Immature Grans 0.03 10^3/uL (0.0-0.06); HCT 37.9 % (36.0-46.0); HGB 11.6 g/dL (11.2-15.7); Immature Grans % 0.3 %; MCH 28.4 pg (27.0-33.0); MCHC 30.6 % (32.0-36.0); MCV 93 fL (80-95); MPV 10.3 fL (8.0-11.0); Platelet Count 265 10^3/uL (130-400); RBC 4.08 10^6/uL (3.93-5.22); RDW 13.5 % (11.7-14.6); RDW-SD 45.9 fL; WBC 9.31 10^3/uL (4.4-10.8)
[2025-01-03 11:39] LABS: ALT 20 U/L (14-59); AST 12 U/L (15-37); Albumin 3.6 g/dL (3.4-5.0); Alkaline Phosphatase 60 U/L (46-116); Anion Gap 9.6 mmol/L (3-11); BUN 15 mg/dL (7-18); Bilirubin, Total 0.3 mg/dL (0.2-1.0); CO2 27.4 mmol/L (21.0-32.0); Calcium 8.6 mg/dL (8.5-10.1); Chloride 104 mmol/L (98-107); Estimated GFR 128.46 (mL/min/1.73m2); Glucose 97 mg/dL (74-106); Magnesium 1.7 mg/dL (1.8-2.4); Potassium 4.4 mmol/L (3.5-5.1); Sodium 141 mmol/L (136-145); Total Protein 7.4 g/dL (6.4-8.2)
[2025-01-03] MEDS: Omnipaque 350 MG/ML 100 ML BTL IJ (12:21)
[2025-01-03] MEDS: Normal Saline - Diluent 50 ML VIAL IJ (12:23)
[2025-01-03] MEDS: Normal Saline Flush 10 ML SYR IVP (12:23)
--- NOTE | 2025-01-03 14:06 | DI.VRAD_ITS ---
PROCEDURE INFORMATION: Exam: CT Abdomen And Pelvis Without And With Contrast, Urography Exam date and time: 01/03/2025 12:10 PM Age: 24 years old Clinical indication: Other: Hematuria TECHNIQUE: Imaging protocol: Computed tomography of the abdomen and pelvis without and with intravenous contrast. Exam focused on the kidneys and ureters. Contrast material: OMNIPAQUE 350; Contrast volume: 75 ml; Contrast route: INTRAVENOUS (IV); COMPARISON: CT CHEST PE ABD PELVIS W 08/27/2024 5:43 PM FINDINGS: Liver: Normal. No mass. Gallbladder and biliary ducts: Normal. No calcified stones. No ductal dilation. Pancreas: Normal. No ductal dilation. Spleen: Normal. No splenomegaly. Adrenal glands: Normal. No mass. Kidneys and ureters: Kidneys are unremarkable. Normal nephrograms. No hydronephrosis. No renal masses. There is normal filling of the caliceal system. No filling defect to suggest calculus in the visualized ureter. Stomach and bowel: Normal. No obstruction. No mucosal thickening. Appendix: No evidence of appendicitis. Clips present at the base of the cecum. Probable prior appendectomy. Intraperitoneal space: Unremarkable. No free air. No significant fluid collection. Vasculature: Unremarkable. No abdominal aortic aneurysm. Lymph nodes: Unremarkable. No enlarged lymph nodes. Urinary bladder: Unremarkable. Reproductive: Unremarkable. Bones/joints: Unremarkable. No acute fracture. No dislocation. Soft tissues: Unremarkable. IMPRESSION: No acute findings. Dictated and Authenticated by: Migel German MD. Orderin Judith Duncan MD
[2025-01-03] MEDS: MacroBID 100 MG CAP PO (14:56)
--- NOTE | 2025-01-05 09:41 | NUR.NOTE ---
Access chart to determine the antibiotic on discharge for urine culture. Result given to provider. Nursing Note:
--- NOTE | 2025-01-05 09:42 | W.ED.FU ---
Date of service: 01/05/25 Time of Service: 09:42 Follow Up Plan: Received culture results, UA with less than 10,000 colonies of gram-positive osmar and gram-negative rods. Patient was discharged appropriately on Macrobid, no actions or changed antibiotics required. Jen Triplett MD
--- NOTE | 2025-01-07 08:02 | NUR.NOTE ---
Accessed Pt chart to document antibiotics given on the Specimen Report. Report was given to Providers.
== END 2025-01-03 15:07 | disposition home or self-care (01) ==
PROVIDERS: Emergency Provider Nurse Practitioner Family; PCP Nurse Practitioner Family
DX: R31.9 Hematuria, unspecified (principal); M54.50 Low back pain, unspecified; R10.815 Periumbilic abdominal tenderness
CPT/HCPCS: 99284; 99285; 81025; 36415; 51798; 80053; 93005; 74178; 81003; 81015; 83735; 85025; 87086; 93010; J3490

== ENCOUNTER 2025-02-09 13:17 | Emergency (ER) | payer MEDICAID, SELFPAY ==
[2025-02-09 13:35] VITALS: BP 115/73; PULSE 88; RESP 14; TEMP 36.5; O2SAT 99
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
--- NOTE | 2025-02-09 13:40 | W.EDPROG ---
Date of service: 02/09/25 Time of Service: 13:40 Medical Decision Making I initially signed up for this patient she felt uncomfortable with male providers. Fortunately there is an oncoming female provider in the next 20 minutes. Patient has no emergent complaints and reassuring vital signs. 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 Primary Care Provider: Pily Bain ED Provider: Hawk Panda Home Meds and New Rx's Prescriptions: No Action fluticasone propionate [Flonase Allergy Relief] 50 mcg/actuation spray,suspension 2 spray intranasal DAILY Qty: 16 12RF Rx Instructions: administer into each nostril albuterol sulfate [Ventolin HFA] 90 mcg/actuation HFA aerosol inhaler 2 puff INHALATION Q4H PRNQty: 0 0RF Patient Comments: INHALE TWO PUFFS BY MOUTH EVERY 4 TO 6 HOURS NEEDED divalproex 500 mg tablet extended release 24 hr 500 mg PO HS Patient Comments: TAKE TWO TABLETS BY MOUTH EVERY EVENING AT BEDTIME metformin 500 mg tablet 500 mg PO HS Patient Comments: TAKE ONE TABLET BY MOUTH EVERY DAY WITH LARGEST MEAL OF THE DAY quetiapine 100 mg tablet 100 mg PO HS Patient Comments: TAKE ONE TABLET BY MOUTH EVERY DAY AT BEDTIME
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
[2025-02-09] MEDS: valACYclovir 500 MG TAB 1000 MG PO (14:29)
[2025-02-09 14:37] LABS: Glucose Negative (Negative)
[2025-02-09 14:49] LABS: C & S Indicated? No; RBC 0-2 HPF (0-2); WBC 0-2 HPF (0-5)
[2025-02-09] MEDS: valACYclovir 500 MG TAB 2000 MG PO (15:47)
[2025-02-09] MEDS: metroNIDAZOLE 500 MG TAB, 3 TABS/BTL PO (15:47)
[2025-02-10 12:04] LABS: Chlamydia Result Negative (Negative); GC Result Negative (Negative)
[2025-02-10 13:29] LABS: HSV 1 DNA Result Negative (Negative); HSV 2 DNA Result Positive (Negative)
--- NOTE | 2025-02-15 13:37 | W.ED.FU ---
Date of service: 02/15/25 Time of Service: 13:37 Follow Up Plan: This patient was seen recently in the emergency department. She was diagnosed with an HSV infection of her vagina for which she was placed on valacyclovir. Her HSV PCR swab returned positive for HSV-2. Attempted to call the patient at home. She did not answer. She had a voicemail but it did not identify her by name. I left a generic message requesting a callback to the emergency department.
== END 2025-02-09 16:07 | disposition home or self-care (01) ==
PROVIDERS: Emergency Provider Emergency Medicine; PCP Nurse Practitioner Family
DX: A60.04 Herpesviral vulvovaginitis (principal); N76.0 Acute vaginitis
CPT/HCPCS: 99283 ×2; 81025; 00123; 87491; 87529; 87591; 81003; 81015; 87480; 87510; 87660

== ENCOUNTER 2025-02-26 10:32 | Emergency (ER) | payer MEDICAID, SELFPAY ==
[2025-02-26 10:34] VITALS: BP 146/83; PULSE 92; RESP 18; TEMP 36.9; O2SAT 98
[2025-02-26 10:36] VITALS: BP 146/83; PULSE 92; RESP 18; TEMP 36.9; O2SAT 98
[2025-02-26 10:51] LABS: Glucose Negative (Negative)
[2025-02-26 11:01] LABS: RBC >50 HPF (0-2)
[2025-02-26 11:02] LABS: C & S Indicated? No
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
== END 2025-02-26 11:25 | disposition home or self-care (01) ==
PROVIDERS: Emergency Provider Emergency Medicine; PCP Nurse Practitioner Family
DX: R39.15 Urgency of urination (principal); N32.9 Bladder disorder, unspecified
CPT/HCPCS: 81025; 99283; 81003; 81015

== ENCOUNTER 2025-03-12 11:40 | Outpatient (CLI) | payer MEDICAID, SELFPAY ==
[2025-03-13 02:19] LABS: HIV-1/2 Ag & Ab Screen Negative (Negative)
[2025-03-13 04:46] LABS: Hepatitis C Ab w Rflx HCV PCR Negative (Negative)
[2025-03-15 13:27] LABS: Syphilis Serology (RPR) Negative (Negative)
== END 2025-03-12 11:41 | disposition home or self-care (01) ==
PROVIDERS: Obstetrics & Gynecology; PCP Nurse Practitioner Family; Visit Provider Registered Nurse
DX: Z20.2 Contact with and (suspected) exposure to infections with a predominantly sexual mode of transmission (principal); F25.0 Schizoaffective disorder, bipolar type; F43.12 Post-traumatic stress disorder, chronic; F41.9 Anxiety disorder, unspecified; F60.3 Borderline personality disorder
CPT/HCPCS: 36415; 86803; 87340; 87389; 80164; 86592